=== PATIENT | female | born 1950 | race Caucasian/White ===

== ENCOUNTER 2018-04-23 14:08 | Outpatient (CLI) | payer MEDICARE, BC, OTHER | END 2018-04-23 14:09 | disposition home or self-care (01) | LOC: BICMAMMO 14:08 | PROVIDERS: ATTEND Internal Medicine | DX: Z12.31 Encounter for screening mammogram for malignant neoplasm of breast (principal); R92.1 Mammographic calcification found on diagnostic imaging of breast | CPT/HCPCS: 77063; 77067 ==

== ENCOUNTER 2019-02-03 19:49 | Inpatient (IN) | payer MEDICARE, BC, OTHER ==
[2019-02-03 20:37] LABS: #Basophils 0.1 thou/uL (0.0-0.2); #Eosinphils 0.1 thou/uL (0.0-0.7); #Lymphocytes 1.6 thou/uL (1.20-3.40); #Monocytes 0.8 thou/uL (0.11-0.59); #Neutrophils 7.6 thou/uL (1.40-6.50); %Basophils 0.6 % (0.0-1.0); %Eosinophils 1.3 % (0.0-10.0); %Lymphocytes 15.4 % (21.0-51.0); %Monocytes 7.4 % (0.0-10.0); %Neutrophils 75.4 % (42.0-75.0); Hemoglobin 14.4 g/dL (12.0-16.0); Mean Corpuscular HGB CONC 32.4 g/dL (32.0-36.0); Mean Corpuscular Hemoglobin 30.8 pg (27.0-31.0); Mean Corpuscular Volume 94.9 fL (78.0-98.0); Mean Platelet Volume 8.1 fL (7.4-10.4); Platelet Count 267 thou/uL (130-400); RBC Distribution Width 12.6 % (11.5-14.5); Red Blood Cell (RBC) Count 4.68 mill/uL (4.20-5.40); White Blood Cell (WBC) Count 10.1 thou/uL (4.8-10.8)
[2019-02-03 21:01] LABS: ALT (SGPT) 34 U/L (8-55); AST (SGOT) 29 U/L (5-34); Albumin 4.6 g/dL (3.4-4.8); Alkaline Phosphatase 92 U/L (40-150); Anion Gap 13 mmol/L (10-20); BUN (Urea Nitrogen) 24 mg/dL (9.8-20.1); Bilirubin, Total 0.3 mg/dL (0.2-1.2); Calc. Creatinine Clearance 0 mL/min (70-130); Calcium 10.3 mg/dL (7.8-10.44); Carbon Dioxide 30 mmol/L (23-31); Chloride 96 mmol/L (98-107); Estimated GFR-MDRD 69; Globulin 2.9 g/dL (2.4-3.5); Glucose 123 mg/dL (80-115); Lipase 913 U/L (8-78); Potassium 5.1 mmol/L (3.5-5.1); Protein, Total 7.5 g/dL (6.0-8.3); Sodium 134 mmol/L (136-145)
[2019-02-03 21:07] LABS: Bilirubin Negative (Negative); Blood, Urine Negative (Negative); Clarity Clear (Clear); Glucose, Urine (Dipstick) Normal (Negative); Leukocyte 250 Leu/uL (Negative); Nitrite Negative (Negative); Protein, Urine (Dipstick) Negative (Neg-Trace); RBC/HPF 0-3 HPF (0-3); Squamous Epithelial 0-3 HPF (0-3); Urobilinogen Normal mg/dL (Less than 2)
[2019-02-03] MEDS ORDERED: Ondansetron PF 4 MG/2 ML Vial ONE ×2 (21:07→22:40)
--- NOTE | 2019-02-03 21:35 | CT ---
CT Abdomen Pelvis W Con: 02/03/2019 12:00 AM CLINICAL INFORMATION: Left-sided abdominal pain COMPARISON: 12/21/2016 TECHNIQUE: Multiple contiguous axial images were obtained and a CT of the abdomen and pelvis with IV contrast. C oronal reformats were performed. FINDINGS: Lower Chest: within normal limits. Bilateral breast implants. Abdomen: Liver: within normal limits. Bile Ducts: Normal caliber. Gallbladder: Absent Pancreas: within normal limits. Spleen: within normal limits. Adrenals: within normal limits. Kidneys: within normal limits. Pelvis: Reproductive Organs: Status post hysterectomy. Ureters: within normal limits. Bladder: within normal limits. Peritoneum: No ascites or free air, no fluid collection. Bowel: Postsurgical changes in the upper abdomen and stomach. Stool is seen throughout the colon. The re are dilated proximal small bowel loops. A small bowel feces sign is seen in the more distal dilated small bowel loops. The most distal small bowel loops are decompressed. There appears to be a transition point just to the right of the midline in the periumbilical region. Mesentery and Retroperitoneum: No enlarged mesenteric or retroperitoneal lymph nodes. Vessels: Normal. Abdominal Wall: within normal limits. Bones: Postsurgical changes in the spine and left sacroiliac joint. IMPRESSION: Findings are consistent with small bowel obstruction.
[2019-02-03] MEDS ORDERED: Morphine 4 MG/ML VIAL ONE (22:15)
[2019-02-04] MEDS ORDERED: Morphine 4 MG/ML VIAL SLOW IVP PRN (00:05)
[2019-02-04] MEDS ORDERED: Ondansetron PF 4 MG/2 ML Vial IVP PRN (00:06)
[2019-02-04] MEDS ORDERED: Ondansetron ODT 4 MG TAB SL PRN (00:06)
[2019-02-04] MEDS ORDERED: Morphine 2 MG/ML SYRINGE SLOW IVP PRN (00:25)
[2019-02-04 00:26] VITALS: BMI 25.4
[2019-02-04] MEDS ORDERED: Acetaminophen 325 MG TAB PO PRN (00:27)
[2019-02-04] MEDS ORDERED: Acetaminophen 650 MG Suppository PR PRN (00:27)
[2019-02-04] MEDS: Sodium Chloride 0.9% 1,000 ML IV SCH ×7 (00:34→22:16)
[2019-02-04 06:39] LABS: #Lymphocytes 0.5 thou/uL (1.20-3.40); #Monocytes 0.4 thou/uL (0.11-0.59); #Neutrophils 9.1 thou/uL (1.40-6.50); %Basophils 0.1 % (0.0-1.0); %Eosinophils 0.1 % (0.0-10.0); %Lymphocytes 5.2 % (21.0-51.0); %Monocytes 4.3 % (0.0-10.0); %Neutrophils 90.3 % (42.0-75.0); Hemoglobin 13.8 g/dL (12.0-16.0); Mean Corpuscular HGB CONC 31.4 g/dL (32.0-36.0); Mean Corpuscular Hemoglobin 29.9 pg (27.0-31.0); Mean Corpuscular Volume 95.1 fL (78.0-98.0); Mean Platelet Volume 8.9 fL (7.4-10.4); Platelet Count 241 thou/uL (130-400); RBC Distribution Width 12.6 % (11.5-14.5); Red Blood Cell (RBC) Count 4.62 mill/uL (4.20-5.40)
[2019-02-04 06:57] LABS: Anion Gap 14 mmol/L (10-20); BUN (Urea Nitrogen) 21 mg/dL (9.8-20.1); Calc. Creatinine Clearance 79 mL/min (70-130); Calcium 9.4 mg/dL (7.8-10.44); Carbon Dioxide 28 mmol/L (23-31); Chloride 100 mmol/L (98-107); Estimated GFR-MDRD 86; Glucose 159 mg/dL (80-115); Potassium 4.9 mmol/L (3.5-5.1); Sodium 137 mmol/L (136-145)
[2019-02-04] MEDS: Enoxaparin Sodium 40 MG/0.4 ML SYRINGE SC SCH (08:00)
--- NOTE | 2019-02-04 10:02 | PRG ---
DATE OF SERVICE: 02/04/2019 SUBJECTIVE: The patient was seen and examined at the bedside. She does not have abdominal pain anymore. She did not vomit this morning. She is improved clinically. OBJECTIVE: VITAL SIGNS: Blood pressure is 123/75, pulse is 76, temperature is 98.1, respirations 16, and O2 saturation is 94% on room air. HEENT: Head is atraumatic and normocephalic. Eyes are PERRLA. Sclerae are nonicteric. Oral mucosa is slightly dry. NECK: Supple. LUNGS: Clear. HEART: S1 and S2 normal. ABDOMEN: Soft, nontender, and nondistended. Bowel sounds are present. No organomegaly. EXTREMITIES: No clubbing, cyanosis, or edema. NEUROLOGIC: She is alert and oriented x4. There is no any motor or sensory deficits present. Cranial nerves are intact. She is alert and oriented x4. LABORATORY DATA: Labs showed normal CBC. Normal electrolytes. BUN of 21, creatinine 0.68, and glucose 159. Lipase was elevated at 913 yesterday. IMPRESSION: 1. Small bowel obstruction, recurrent. The patient had multiple episodes of that in the past. 2. Elevated lipase, which suggest of mild pancreatitis. 3. Hypothyroidism. 4. Overactive bladder. 5. Macular degeneration. PLAN: Continue IV fluids. General surgeon is consulted for further management of her small bowel obstruction. We will obtain lipase level today. We will keep her n.p.o. except for few medications. She needs to continue and she should be going home in the next probably 48 hours since this happened several times and spontaneously small bowel obstruction was resolved, most likely this time, it is going to happen too. Job ID: [id number]
--- NOTE | 2019-02-04 12:11 | RAD ---
XR Abdomen 1 View/KUB History: Follow-up small bowel obstruction. Comparison: CT prior day Findings: Evaluation for free air and air-fluid levels is limited without a prior examination. Surgic al clips left upper quadrant of the abdomen as well as suture. Left SI joint fusion hardware. Posterior spinal fusion hardware lumbar spine. Impression: 1. Limited evaluation for obstruction as air fluid levels are only well seen on the upright radiograp h. 2. Moderate stool burden in the colon.
--- NOTE | 2019-02-04 12:53 | CON ---
DATE OF CONSULTATION: CONSULTING PHYSICIAN: Leo Aponte MD REASON FOR CONSULTATION: Small bowel obstruction and pancreatitis. HISTORY OF PRESENT ILLNESS: The patient is a 68-year-old white female. She has a history of an open gastric bypass in 1978 with a revision in 1982. She apparently achieves substantial weight loss and sometime thereafter had abdominoplasty. She has had adhesions related to this. She had a laparotomy for this in 2007, when she developed a small bowel obstruction. This is apparently performed by Dr. Dumont. She apparently has had some degree of bowel obstruction requiring hospitalization in 2016 and 2017. Both of these resolved with nonoperative treatment. There has been concern at various times for her having some degree of pancreatitis as well. She has had elevated lipase both in 2016 and 2017, and again with this admission. She has been evaluated by Dr. Koehler, but of course, following a gastric bypass, ERCP has not been possible. She notes that two days ago, she developed lower abdominal pain. This seemed to improve and she was able to go to voodoo yesterday and at that time, she had a recurrent pain and had bilious emesis and she presented to the hospital. She notes that she had several subsequent episodes of emesis. CT scan was obtained in the emergency room, was consistent with small bowel obstruction. She had changes that revealed a fecalization of the small bowel. This gave a necrotic appearance to her small bowel obstruction. Reasons that are uncertain, she was admitted to the hospital without a nasogastric tube. She tells me that overnight her symptoms improved/resolved. She now denies any pain. She has not vomited since last night. She passed gas once today. She believes her symptoms have entirely resolved. It is noted that her lipase level dropped from 913 last night down to 352 today. PAST MEDICAL HISTORY: Anxiety/depression, "pancreatic spasms", hypothyroidism, and overactive bladder. CURRENT MEDICATIONS: 1. Diazepam. 2. Dicyclomine. 3. Levothyroxine. 4. Bupropion. 5. Citalopram. 6. Oxybutynin. ALLERGIES: TO CODEINE. PAST SURGICAL HISTORY: 1. Appendectomy. 2. Cholecystectomy. 3. Foot surgery. 4. Abdominal hysterectomy. 5. Open gastric bypass in 1978. 6. Revisional gastric pouch surgery in 1982. 7. Exploratory laparotomy for adhesions in 2007. 8. Lumbar surgery per Dr. Rodriguez in 2018. 9. Abdominoplasty and breast augmentation in the mid 1980s. PERSONAL AND SOCIAL HISTORY: She does not smoke nor she drink alcohol. She is to her second . She has a son from a prior marriage. REVIEW OF SYSTEMS: Otherwise unremarkable. FAMILY HISTORY: Noncontributory. PHYSICAL EXAMINATION: VITAL SIGNS: Her temperature is 98.1, pulse 76, and blood pressure 123/75. GENERAL: She is a well-developed, well-nourished, pleasant white female, resting in bed, in no acute distress. She is alert and oriented x3. is present at bedside. HEAD, EYES, EARS, NOSE, AND THROAT: Unremarkable. NECK: Supple without mass or tenderness. LUNGS: Clear to auscultation throughout. CARDIAC: Regular rate and rhythm without murmur. ABDOMEN: She has normoactive bowel sounds. Well-healed incisions. No distention. There is no focus of tenderness or palpable mass. EXTREMITIES: Unremarkable. ASSESSMENT AND PLAN: The patient, whose CT scan was reviewed by myself, who had findings quite definitely associated with small bowel obstruction with fecalization of the small bowel to indicate the chronicity of the problem. Nonetheless, she seems to have had complete symptomatic resolution of her problem without a nasogastric tube. For now, a nasogastric tube does not appear to be necessary. I will obtain a KUB to see what her abdomen looks like currently. If it seems to have normalized or improved, then I would recommend obtaining a Gastrografin small bowel followthrough now to see if her obstruction has resolved. If it does not appear to have normalized on the KUB, then I will hold off on the small bowel followthrough until tomorrow. Job ID: [id number]
--- NOTE | 2019-02-04 14:03 | RAD ---
XR Small Bowel STANDARD History: Small bowel obstruction Comparison: CT prior day Findings: Patient was given Gastrografin contrast. There is contrast into the large bowel by 45 minut es with progressive contrast distention of the transverse colon by one hour. Impression: No evidence for small bowel obstruction.
[2019-02-04] MEDS: Bupropion 100 MG SR TAB PO SCH (20:52)
[2019-02-04] MEDS ORDERED: BUPROPION HCL PO SCH (21:00)
[2019-02-05] MEDS: Sodium Chloride 0.9% 1,000 ML IV SCH ×2 (04:34→09:43)
[2019-02-05] MEDS ORDERED: Levothyroxine Sodium 112 MCG TAB PO SCH (06:00)
--- NOTE | 2019-02-05 07:44 | PRG ---
DATE OF SERVICE: 02/05/2019 SUBJECTIVE: Ms. Jensen is resting comfortably in her bed on the medical floor. Yesterday, we obtained a Gastrografin small-bowel follow-through. This showed no evidence of bowel obstruction. She notes that following this study that she had numerous bowel movements through the evening. She has had no episodes of emesis. She was started on clear liquid diet, which she tolerated uneventfully. She denies any abdominal pain. OBJECTIVE: VITAL SIGNS: On examination, she is afebrile. Pulse is 87, blood pressure 134/81. LUNGS: Clear to auscultation. ABDOMEN: Soft, nontender, and nondistended with normoactive bowel sounds. LABORATORY DATA: There are no labs that have been ordered for today. ASSESSMENT: The patient who had presented to the hospital with CT scan consistent with small bowel obstruction. This resolved spontaneously and she is tolerating her diet currently. In regard to her pancreatitis, her lipase level dropped from 900 at the time of admission to 350 by yesterday and she has no symptoms in regard to her currently. I do not believe it needs to be retested. In summary, she is stable for discharge. I recommend continue her liquid diet for 48 hours, which should be through today and tomorrow, and then advancing her diet as tolerated. She can follow up with surgery p.r.n. and she requires no further studies or labs. Job ID: [id number]
[2019-02-05 07:53] VITALS: BP 121/70; TEMP 98.6
--- NOTE | 2019-02-05 07:59 | HP ---
PRIMARY CARE DOCTOR: Dr. Jose Seo. CODE STATUS: Full code. TIME OF EVALUATION: 11:50 p.m. CHIEF COMPLAINT: Abdominal pain. HISTORY OF PRESENT ILLNESS: This is a 68-year-old female patient with past medical history of hypothyroidism, previous small-bowel obstruction, osteoporosis, pancreatic spasm, and chronic sinusitis, came to the hospital after having abdominal pain that was severe, started insidiously and has been getting worse gradually, became severe. No clear triggers, no alleviating factors. Of note, the patient has had a surgery with Dr. Dumont in 2007 for bowel obstruction. REVIEW OF SYSTEMS: CONSTITUTIONAL: No fever, chills, or generalized weakness. RESPIRATORY: No cough, sputum production, or shortness of breath. CARDIOVASCULAR: No chest pain or palpitation. GASTROINTESTINAL: The patient has nausea, vomiting. No diarrhea. The patient has abdominal pain. BATTERY MECHANIC: No dizziness, headache, or feeling lightheaded. GENITOURINARY: No burning on urination. EXTREMITIES: No leg swelling. All other systems were reviewed and negative except for the findings mentioned above. PAST MEDICAL HISTORY: As mentioned in the HPI. PAST SURGICAL HISTORY: The patient has had breast augmentation, tummy tuck, cholecystectomy, gastric bypass, hysterectomy, orthopedic surgery of the left foot, surgical history of a surgery. PSYCHIATRIC HISTORY: Anxiety and depression. SOCIAL HISTORY: No alcohol. No drugs. No smoking history. KNOWN ALLERGIES: Alprazolam, codeine sulfate, Toradol, tramadol. REPORTED MEDICATIONS: 1. Diazepam. 2. Dicyclomine. 3. Azelastine. 4. Fluticasone. 5. Latanoprost. 6. PreserVision. 7. Levothyroxine. 8. Bupropion. 9. Cyanocobalamin. 10. Oxybutynin chloride. 11. Citalopram. 12. Aspirin. 13. Calcium. 14. Vitamin C. 15. Biotin. 16. Vitamin D. 17. Multivitamin. PHYSICAL EXAMINATION: VITAL SIGNS: On presentation, blood pressure 155/82 with heart rate 80, respiratory rate was 16, temperature 98.4, pain was 0/10, oxygen saturation was 97% on room air. GENERAL APPEARANCE: The patient is alert, oriented, not in acute distress. HEENT: Eyes, normal conjunctivae. Moist oral mucosa. Anicteric. No JVD. RESPIRATORY: Bilateral air entry. No rales or wheezes. Symmetric expansion. CARDIOVASCULAR: Normal rate. Regular rhythm. No murmurs. No gallop. No edema. ABDOMEN: Soft. Normal bowel sounds. The patient has abdominal tenderness. MUSCULOSKELETAL: Baseline range of motion and strength. SKIN: Warm, intact. No pallor. No rash. No redness. Capillary refill seems to be intact. NEUROLOGICAL: No evidence of any new focal weakness. Cranial nerves seem to be intact. PSYCH: The patient is in good mood. No anxiety. Optimal judgment. Patient has small-bowel obstruction. LABORATORY DATA: Reviewed. The patient has white count of 10.1, hemoglobin 14.4, MCV 94.9, platelet count 267. Chemistry; sodium 134, potassium 5.1, chloride 96, carbon dioxide 30, anion gap 13, BUN 24, creatinine 0.82, GFR 69, glucose 123, calcium 10.3, total bilirubin 0.3. LFTs were negative. Lipase 113. Urine was done, the patient has a white count of 4 to 6 with urine leukocyte esterase 250. ASSESSMENT AND PLAN: The patient will be placed in the hospital with following medical problems: 1. Acute pancreatitis with elevation in lipase associated with small bowel obstruction seen on CT. We will treat symptomatically with the IV fluids, pain medications. Surgery is being consulted as per ER report. We will follow recommendations. 2. Hyponatremia, this is mild. Sodium 134. No need for any acute intervention. Monitor sodium level. 3. Hypothyroidism. Continue levothyroxine. 4. Deep venous thrombosis prophylaxis. Job ID: [id number]
[2019-02-05] MEDS: Bupropion 100 MG SR TAB PO SCH (08:32)
[2019-02-05] MEDS: Enoxaparin Sodium 40 MG/0.4 ML SYRINGE SC SCH (08:33)
[2019-02-05] MEDS ORDERED: Levothyroxine Sodium 125 MCG TAB PO SCH (09:00)
--- NOTE | 2019-02-05 10:57 | DIS ---
DATE OF ADMISSION: 02/03/2019 DATE OF DISCHARGE: 02/05/2019 FINAL DIAGNOSES: 1. Small bowel obstruction, resolved. 2. Mild acute pancreatitis, resolved. 3. Hypothyroidism. 4. Overactive bladder. 5. Macular degeneration. CONSULTANTS: Dr. Marcello Newman, General Surgery. HOSPITAL COURSE: The patient is a 68-year-old female, who was admitted to the hospital with abdominal pain. She was evaluated in the emergency room, and the CT of the abdomen showed small bowel obstruction. She had several episodes of similar presentation in the past. At the time of emergency room visit this time, her white count was 10.1, hemoglobin 14.4, platelet count 267. Sodium 134, potassium 5.1, chloride 96, CO2 of 30, BUN 24, creatinine 0.82. Her lipase was elevated at 113. Urinalysis showed 250 of leukocyte esterase, 4 to 6 wbc's, and 21 to 50 hyaline casts. She got admitted to the hospital for further management. She was seen by Dr. Newman for General Surgery consultation. She underwent a bowel x-ray with the barium, which did not show any small bowel obstruction, so most likely, this was resolved. She was placed on clear liquids, and she does not have any nausea or vomiting. She had several bowel movements overnight. Also, her abdominal x-ray, but the quality was limited. She is doing well. Her blood pressure is 121/70, pulse is 75, temperature is 98.6, and respiratory rate is 16. O2 saturation is 95% on room air. She is seen and examined before she is discharged. DISPOSITION: Home. CONDITION UPON DISCHARGE: She is discharged in good condition. DIET: She is supposed to be on a liquid diet for 48 hours, then advance as tolerated. ACTIVITY: As tolerated. DISCHARGE MEDICATIONS: Her medications at the time of discharge are the same what she was taking at home prior to this hospitalization, which are: 1. Dicyclomine 1 tablet 4 times a day. 2. Oxybutynin 5 mg daily. 3. Celexa 10 mg daily. 4. Vitamin D3 of 1000 units once a day. 5. Wellbutrin SR 1 tablet twice a day. 6. Multivitamin once a day. 7. Biotin twice a day. 8. Ascorbic acid 1 tablet twice a day. 9. Calcium carbonate 600 mg twice a day. 10. Aspirin 81 mg once a day. 11. Diazepam 1 tablet once a day, unknown dose. 12. Nasal spray azelastine 2 puffs each nostril at bedtime. 13. Vitamin B12 of 1000 mcg. 14. Levothyroxine 112 mcg daily. 15. Xalatan ophthalmic solutions. FOLLOWUP: She will follow up with her primary care physician as needed. TIME SPENT: Time spent on the discharge is less than 30 minutes. Job ID: [id number]
== END 2019-02-05 10:30 | disposition home or self-care (01) | DRG 388 ==
LOC: ERS 19:49 → T4-A 23:00
PROVIDERS: ADMIT Hospitalist; ATTEND Hospitalist
DX: K56.699 Other intestinal obstruction unspecified as to partial versus complete obstruction (principal); K85.90 Acute pancreatitis without necrosis or infection, unspecified; E87.1 Hypo-osmolality and hyponatremia; E03.9 Hypothyroidism, unspecified; M81.0 Age-related osteoporosis without current pathological fracture; N32.81 Overactive bladder; H35.30 Unspecified macular degeneration; Z90.49 Acquired absence of other specified parts of digestive tract; Z90.710 Acquired absence of both cervix and uterus; Z88.8 Allergy status to other drugs, medicaments and biological substances; Z88.5 Allergy status to narcotic agent; Z79.899 Other long term (current) drug therapy; Z79.82 Long term (current) use of aspirin
CPT/HCPCS: 36415; 74018; 74177; 74250; 80048; 80053; 81003; 81015; 83690; 85025; 96374; 96375; 96376; J1650; J2270; J2405

== ENCOUNTER 2019-03-10 23:47 | Inpatient (IN) | payer MEDICARE, BC, OTHER ==
[~2019-03-10 23:47] MED LIST: ISOVUE-370 76%-LOCM 1 ML ONE
[2019-03-11] MEDS ORDERED: Ondansetron PF 4 MG/2 ML Vial ONE ×3 (00:21→05:15)
[2019-03-11 00:26] LABS: #Basophils 0.1 thou/uL (0.0-0.2); #Eosinphils 0.1 thou/uL (0.0-0.7); #Lymphocytes 1.3 thou/uL (1.20-3.40); #Monocytes 0.9 thou/uL (0.11-0.59); #Neutrophils 11.9 thou/uL (1.40-6.50); %Basophils 0.4 % (0.0-1.0); %Eosinophils 0.9 % (0.0-10.0); %Lymphocytes 9.1 % (21.0-51.0); %Monocytes 6.2 % (0.0-10.0); %Neutrophils 83.5 % (42.0-75.0); Hemoglobin 14.1 g/dL (12.0-16.0); Mean Corpuscular HGB CONC 32.1 g/dL (32.0-36.0); Mean Corpuscular Volume 93.3 fL (78.0-98.0); Platelet Count 285 thou/uL (130-400); RBC Distribution Width 12.7 % (11.5-14.5); White Blood Cell (WBC) Count 14.3 thou/uL (4.8-10.8)
[2019-03-11 00:38] LABS: ALT (SGPT) 23 U/L (8-55); AST (SGOT) 32 U/L (5-34); Albumin 4.6 g/dL (3.4-4.8); Alkaline Phosphatase 102 U/L (40-150); Anion Gap 14 mmol/L (10-20); BUN (Urea Nitrogen) 23 mg/dL (9.8-20.1); Bilirubin, Total 0.3 mg/dL (0.2-1.2); Calc. Creatinine Clearance 0 mL/min (70-130); Calcium 10.4 mg/dL (7.8-10.44); Carbon Dioxide 28 mmol/L (23-31); Chloride 99 mmol/L (98-107); Estimated GFR-MDRD 72; Globulin 2.6 g/dL (2.4-3.5); Glucose 171 mg/dL (80-115); Potassium 4.5 mmol/L (3.5-5.1); Protein, Total 7.2 g/dL (6.0-8.3); Sodium 136 mmol/L (136-145)
[2019-03-11] MEDS ORDERED: Morphine 4 MG/ML VIAL ONE ×3 (00:42→05:22)
[2019-03-11 00:52] LABS: Lipase 4513 U/L (8-78)
--- NOTE | 2019-03-11 07:36 | CT ---
PRELIMINARY REPORT/[facility]/EMERGENCY AFTER HOURS PROCEDURE: EXAM: CT Abdomen and Pelvis With Contrast EXAM DATE/TIME: 03/11/2019 12:59 AM CLINICAL HISTORY: 68 years old, female; Abdominal pain; Acute; Patient HX: 68 y/o F, with h/o bowel obstruction, presents to ED C/O abd pain with vomiting. Pain began earlier today, with onset of vomiting at approx. 2300. She reports having x 5 bms today. PT was prompted to come to ED as she had been previously instructed by her surgeon to do for R/O sbo. TECHNIQUE: Imaging protocol: Axial computed tomography images of the abdomen and pelvis with intravenous contrast. COMPARISON: No relevant prior studies available. FINDINGS: Heart: Mild cardiomegaly. Liver: No acute findings. Peripheral right hepatic small relative low attenuation focus. Gallbladder and bile ducts: Status post cholecystectomy with central biliary dilation. Pancreas: No acute findings. No mass. No ductal dilation. Spleen: No acute findings. No mass. Adrenals: No acute findings. No mass. Kidneys and ureters: No acute findings. No mass. No hydronephrosis. Stomach and bowel: Postsurgical changes of the bowel. Markedly dilated small bowel loops with air fluid levels and fecal material likely related to obstruction. Edema/mild fluid within the right uppe r quadrant. Fecal colonic loading as well. Appendix: No evidence of appendicitis. Intraperitoneal space: No free air. Vasculature: No acute findings. No abdominal aortic aneurysm. Lymph nodes: No significant lymphadenopathy. Bladder: No acute findings. Reproductive: No acute findings. Bones/joints: No acute fracture. Postsurgical changes of the pelvis and spine. Soft tissues: No acute findings. Bilateral breast implants. IMPRESSION: Small bowel obstruction. Thank you for allowing us to participate in the care of your patient. Dictated and Authenticated by: Chriss Corrigan MD 03/11/2019 2:13 AM Central Time ([place] & [place]) FINAL REPORT CT Abdomen Pelvis W Con History: Abdominal pain. Small bowel obstruction. Comparison: CT abdomen and pelvis February 03, 2019 Findings: Findings and impression are concordant with the preliminary report. Impression: Small bowel obstruction as described. Findings are relatively similar to the February 03, 2019 CT examination. Transcribed Date/Time: 03/11/2019 7:57 AM
[2019-03-11] MEDS ORDERED: Morphine 4 MG/ML VIAL IV PRN (09:15)
[2019-03-11] MEDS ORDERED: Ondansetron ODT 4 MG TAB PO PRN (09:16)
[2019-03-11] MEDS: Ondansetron PF 4 MG/2 ML Vial IVP PRN ×2 (09:28→15:57)
[2019-03-11] MEDS ORDERED: hydrALAZINE 20 MG/ML VIAL SLOW IVP PRN (09:31)
[2019-03-11] MEDS ORDERED: Morphine 4 MG/ML VIAL SLOW IVP PRN (09:31)
[2019-03-11] MEDS ORDERED: Lorazepam 2 MG/ML VIAL SLOW IVP PRN (09:31)
[2019-03-11] MEDS ORDERED: Acetaminophen 1,000 MG in Premix Bag 1 BAG IVPB PRN (09:35)
[2019-03-11] MEDS ORDERED: Ketorolac Tromethamine 30 MG/ML VIAL IVP PRN (09:35)
[2019-03-11] MEDS ORDERED: Acetaminophen 1,000 MG in Premix Bag 1 BAG IVPB SCH (09:45)
--- NOTE | 2019-03-11 10:01 | RAD ---
XR Abdomen 1 View/KUB History: NG tube placement Comparison: Radiograph February 04, 2019 Findings: Enteric tube tip is at the gastric body with side port above the GE junction. Dilated loops of bowel in the abdomen. Impression: Enteric tube side port above the GE junction. Recommend advancing 5-6 cm.
[2019-03-11] MEDS ORDERED: Morphine 2 MG/ML SYRINGE SLOW IVP PRN (10:02)
[2019-03-11 10:13] VITALS: BMI 26.6
--- NOTE | 2019-03-11 10:26 | HP ---
HISTORY OF PRESENT ILLNESS: Demetrice Jensen, 68-year-old female, well known to me, presents with abdominal pain, nausea, vomiting, and retching since yesterday evening. Prior to that, she had 5 bowel movements yesterday. She has passed flatus since admission. She presented in the emergency room, had a CAT scan performed revealing constipation and changes of a bowel obstruction. There was significant constipation. The patient has been admitted for similar episodes in the past. On 02/05/2019, she was admitted for similar episode and prior to that had not been admitted since 12/24/2016, and prior to that 12/06/2016, and prior to that September 2015. The patient has had small bowel follow through performed, 02/04/2019 and 12/23/2016, and had transit within 30 minutes. The patient did require operative intervention in the past with exploratory laparotomy adhesiolysis performed by me in 2007. She has extensive history including gastric bypass and revision, see below. PAST SURGICAL HISTORY: Appendectomy; open cholecystectomy; abdominal hysterectomy without oophorectomy in 1977; open gastric bypass, losing more than 50 pounds, suffering weight regain, and in 1983 she underwent revision of her pouch, and 2007 a laparotomy adhesiolysis performed by sd. ALLERGIES: NONE. SOCIAL HISTORY: Tobacco, none. Alcohol none. 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 She lives in [place]. She has had lumbar surgery by Dr. Love in the past. She was told she would need another surgery, but did not follow through with that. She saw Dr. Koehler in the past and had a colonoscopy 4 to 5 years ago. PAST MEDICAL HISTORY: Hypothyroidism, osteoporosis, history of morbid obesity with gastric bypass. HOME MEDICATIONS: 1. Wellbutrin. 2. Ditropan. 3. Theragran. 4. Synthroid. 5. Eye drops. 6. Bentyl. 7. Diazepam. 8. Vitamin B12. 9. Celexa. 10. Calcium carbonate. 11. Christopher Biotin. 12. Nasal spray azelastine. 13. Aspirin. 14. Vitamin C. PHYSICAL EXAMINATION: VITAL SIGNS: Weight 65 kg, respiratory rate 18, temperature 97.3 degrees, heart rate 87. HEAD, EARS, EYES, NOSE AND THROAT: Unremarkable. LUNGS: Clear to auscultation. CARDIAC: Regular rate and rhythm without murmur or gallop. ABDOMEN: Soft, mild tympany, distention, tenderness in lower abdomen. Upper abdomen soft. Scars per open surgeries as described above. EXTREMITIES: Unremarkable. No ankle edema. Palpable pulses. LABORATORY DATA: Sodium 136, potassium 4.5, BUN 23, creatinine 0.79. Liver function tests are normal. Hemoglobin 14 and white count 14. ASSESSMENT/PLAN: 1. Significant constipation. 2. Changes of small bowel distention with air-fluid levels. We will place an NG tube. Abdominal x-ray for confirmation and possible small bowel follow through later today or in the morning pending clinical course and NG tube output. Hopefully, we can avoid an operation small bowel follow through. The last two performed recently had rapid transit through the small bowel. Job ID: [id number]
[2019-03-11] MEDS: Lactated Ringer's 1,000 ML IV SCH ×3 (10:38→20:00)
[2019-03-11] MEDS ORDERED: MD-Gastroview 120 ML BOT ONE (15:39)
--- NOTE | 2019-03-11 16:57 | RAD ---
EXAM: XR Small Bowel STANDARD PROVIDED CLINICAL HISTORY: Small bowel obstruction. COMPARISON: 02/04/2019 FINDINGS: Again noted are postsurgical changes in the upper abdomen with multiple surgical clips and radiopaque suture material seen with surgical clips overlying the right upper quadrant. Nasogastric tube is noted in place which terminates near the region of the expected location of the gastroesophageal junc tion. Postsurgical changes lumbar spine are seen. Bowel gas pattern is overall nonspecific on the social media senior associate image with small amount of retained fecal material in the ascending colon. No consolidation is seen either lung base. There is opacification of small bowel loops with approximate transit time of contrast through the sma ll bowel of 1 hour with contrast seen in the ascending colon to the level of the hepatic flexure. Residual contrast is seen within the urinary bladder related to prior contrast exam. IMPRESSION: 1. Loops of small bowel are similar in caliber to the study on 02/04/2019, and there is progression of contrast into the colon with approximate transit time of 1 hour. 2. Postsurgical changes epigastric region.
[2019-03-11] MEDS ORDERED: Cyclobenzaprine 10 MG TAB PO PRN (19:42)
[2019-03-11] MEDS ORDERED: Magnesium Citrate 300 ML BOT PER TUBE SCH (19:45)
[2019-03-11] MEDS: Dicyclomine 20 MG TAB PO SCH (21:00)
[2019-03-11] MEDS ORDERED: Montelukast Sodium 10 mg Tablet PO SCH (21:00)
[2019-03-11] MEDS ORDERED: Azelastine 137 MCG/Spray 30 ML NS SCH (21:00)
[2019-03-11] MEDS ORDERED: Thiamine HCl 200 MG/2 ML VIAL SLOW IVP SCH (21:00)
[2019-03-11] MEDS ORDERED: Vit A,C & E/Lutein/Minerals Tablet PO SCH (21:00)
[2019-03-11] MEDS: Bupropion 100 MG SR TAB PO SCH (21:00)
[2019-03-11] MEDS: Polyethylene Glycol 3350 17 GM Packet PO SCH (21:00)
[2019-03-11] MEDS ORDERED: (Biotin [Mega Biotin] 10,000 MCG) PO SCH (21:00)
[2019-03-11] MEDS: Citalopram 20 MG TAB PO SCH (21:00)
[2019-03-11] MEDS: Ascorbic Acid 500 mg Chewable Tablet PO SCH (21:00)
[2019-03-11] MEDS: Calcium Carbonate 600 MG TAB PO SCH (21:00)
[2019-03-12 04:39] LABS: #Lymphocytes 0.8 thou/uL (1.20-3.40); #Monocytes 0.9 thou/uL (0.11-0.59); #Neutrophils 8.9 thou/uL (1.40-6.50); %Basophils 0.1 % (0.0-1.0); %Eosinophils 0.4 % (0.0-10.0); %Monocytes 8.8 % (0.0-10.0); %Neutrophils 83.7 % (42.0-75.0); Hemoglobin 12.6 g/dL (12.0-16.0); Mean Corpuscular HGB CONC 31.5 g/dL (32.0-36.0); Mean Corpuscular Hemoglobin 30.4 pg (27.0-31.0); Mean Corpuscular Volume 96.6 fL (78.0-98.0); Platelet Count 266 thou/uL (130-400); RBC Distribution Width 12.7 % (11.5-14.5); Red Blood Cell (RBC) Count 4.15 mill/uL (4.20-5.40); White Blood Cell (WBC) Count 10.6 thou/uL (4.8-10.8)
[2019-03-12 05:04] LABS: ALT (SGPT) 37 U/L (8-55); AST (SGOT) 44 U/L (5-34); Albumin 3.6 g/dL (3.4-4.8); Alkaline Phosphatase 97 U/L (40-150); Anion Gap 10 mmol/L (10-20); BUN (Urea Nitrogen) 16 mg/dL (9.8-20.1); Bilirubin, Total 0.4 mg/dL (0.2-1.2); Calc. Creatinine Clearance 76 mL/min (70-130); Calcium 8.4 mg/dL (7.8-10.44); Carbon Dioxide 36 mmol/L (23-31); Chloride 101 mmol/L (98-107); Estimated GFR-MDRD 78; Globulin 2.2 g/dL (2.4-3.5); Glucose 118 mg/dL (80-115); Lipase 250 U/L (8-78); Potassium 4.1 mmol/L (3.5-5.1); Protein, Total 5.8 g/dL (6.0-8.3); Sodium 143 mmol/L (136-145)
[2019-03-12] MEDS ORDERED: Levothyroxine Sodium 112 MCG TAB PO SCH (06:00)
[2019-03-12 08:19] VITALS: BP 128/65; TEMP 98.4
[2019-03-12] MEDS: Dicyclomine 20 MG TAB PO SCH (08:49)
[2019-03-12] MEDS: Citalopram 20 MG TAB PO SCH (08:50)
[2019-03-12] MEDS: Bupropion 100 MG SR TAB PO SCH (08:50)
[2019-03-12] MEDS: Calcium Carbonate 600 MG TAB PO SCH (08:50)
[2019-03-12] MEDS: Polyethylene Glycol 3350 17 GM Packet PO SCH (08:50)
[2019-03-12] MEDS: Ascorbic Acid 500 mg Chewable Tablet PO SCH (08:50)
[2019-03-12] MEDS ORDERED: Oxybutynin 5 MG TAB PO SCH (09:00)
[2019-03-12] MEDS ORDERED: Diazepam 2 MG TAB PO SCH (09:00)
[2019-03-12] MEDS ORDERED: Latanoprost 0.005% Ophth Soln 2.5 ml Bottle EA EYE SCH (09:00)
[2019-03-12] MEDS ORDERED: Aspirin 81 mg Enteric Coated Tablet PO SCH (09:00)
[2019-03-12] MEDS ORDERED: Enoxaparin Sodium 40 MG/0.4 ML SYRINGE SC SCH (09:00)
--- NOTE | 2019-03-12 09:31 | RAD ---
ABDOMINAL SURVEY WITH UPRIGHT CHEST AND 2 VIEW ABDOMEN: Date: 03/12/19 HISTORY: Small bowel obstruction. Correlation made to yesterday's small bowel exam and to films of 03/11/19. FINDINGS: Contrast is seen throughout the colon. There is some residual small bowe3l contrast. There continue t o be gas-filled dilated loops of small bowel in the left abdomen which do exhibit differential air fl uid levels on the upright view. No evidence of free intraperitoneal air. The lung montilla are clear. IMPRESSION: Continued gas-filled dilated loops of small bowel with differential air fluid levels in the left mid and upper abdomen. There is contrast opacification of the colon. POS: [facility]
--- NOTE | 2019-03-12 10:38 | PRG ---
DATE OF SERVICE: 03/12/2019 SUBJECTIVE: Ms. Jensen is doing well today. Small-bowel follow-through had a rapid transit into the colon. Prior to removing her NG tube, she was given magnesium citrate per NG tube, leaving her NG tube for an hour, then removing it. Between the Gastrografin small-bowel follow-through and the magnesium citrate, she has had 2 large bowel movements. Abdominal x-rays this morning looks much better as far as the constipation. Previously, the patient felt that she was not constipated because she is having regular bowel movements, but on presentation, she did have abundant stool in her colon. She is on thyroid replacement and her TSH this morning is 0.7359. She was advised to take MiraLAX and a fiber [id number] once or twice a day. She had a colonoscopy in the last 3 [address] Koehler. I have advised her that she could see him regarding her constipation, although clinically her bowel movements are regular. She has accumulated stool, and on the last three admissions (including this one), she was found to have abundant constipation and all occasions has had a normal small bowel follow-through. OBJECTIVE: LUNGS: Clear to auscultation. CARDIAC: Regular rate and rhythm without murmur or gallop. ABDOMEN: Soft, nontender. ASSESSMENT AND PLAN: Doing well. Plan to discharge home with above measures. Follow up in my office as needed. Follow up with Dr. Koehler in the next few weeks. Job ID: [id number]
[2019-03-12] MEDS ORDERED: Mometasone Furoate 120 PUFF 220 MCG INH SCH (18:30)
[2019-03-12] MEDS ORDERED: Citrucel 500 MG TAB PO SCH (21:00)
--- NOTE | 2019-03-15 10:31 | DIS ---
DATE OF ADMISSION: 03/11/2019 DATE OF DISCHARGE: 03/12/2019 DISCHARGE DIAGNOSES: 1. Constipation, abdominal pain. 2. CT scan suggests possible small bowel obstruction, but small-bowel follow-through Gastrografin revealed normal transit through the small bowel within 1 hour of contrast administration. HISTORY: A 68-year-old female with open gastric bypass and subsequent revision of the pouch, has had laparotomy by me for small-bowel obstruction in 2007. She has had several admissions over the last 2 years for abdominal pain finding constipation and questionable bowel obstruction and an NG tube placed (to 50 to 55 cm considering her gastric bypass status) and Gastrografin study was normal transit within half an hour to hour in colon. The patient is advised, in addition to her home medications, to also take MiraLAX once or twice a day and a fiber once or twice a day and follow up with Dr. Koehler. The patient is tolerating her diet at this time and is discharged home with followup with me as needed. Job ID: [id number]
[2019-04-04] MEDS ORDERED: Cyanocobalamin 1000 MCG/ML VIAL IM SCH (09:00)
== END 2019-03-12 11:03 | disposition home or self-care (01) | DRG 392 ==
LOC: ERS 23:47 → ONC 03-11 05:18
PROVIDERS: ADMIT Specialist; ATTEND Specialist
PROC: 0DH673Z Insertion of Infusion Device into Stomach, Via Natural or Artificial Opening (ICD-10-PCS; principal; 2019-03-11)
DX: K59.00 Constipation, unspecified (principal); E03.9 Hypothyroidism, unspecified; M81.0 Age-related osteoporosis without current pathological fracture; Z90.49 Acquired absence of other specified parts of digestive tract; Z90.711 Acquired absence of uterus with remaining cervical stump; Z98.84 Bariatric surgery status; Z79.82 Long term (current) use of aspirin; Z79.899 Other long term (current) drug therapy
CPT/HCPCS: 36415; 74018; 74022; 74177; 74250; 80053; 83690; 84443; 85025; 94760; 96361; 96374; 96375; 96376; J0131; J1650; J1885; J2270; J2405; J3411

== ENCOUNTER 2019-04-29 13:29 | Outpatient (CLI) | payer MEDICARE, BC, OTHER ==
--- NOTE | 2019-04-29 14:25 | MMO ---
Bilateral MAMMO Bilat Screen [facility]. CLINICAL HISTORY: Patient is 68 years old and is seen for screening. The patient has no family history of breast cancer. The patient has a history of cervical cancer 1975. The patient has a history of Implants in 1985, Explantation in 2005 and Implants in 2005. VIEWS: The views performed were: bilateral craniocaudal with tomosynthesis and bilateral mediolateral oblique with tomosynthesis. FILMS COMPARED: The present examination has been compared to a prior imaging study performed at [facility] on 04/23/2018. This study has been interpreted with the assistance of computer-aided detection. MAMMOGRAM FINDINGS: The breasts are heterogeneously dense, which could obscure a lesion on mammography. Normal implants are present. There are no suspicious masses, suspicious calcifications, or new areas of architectural distortion. IMPRESSION: THERE IS NO MAMMOGRAPHIC EVIDENCE OF MALIGNANCY. A ROUTINE FOLLOW-UP MAMMOGRAM IN 1 YEAR IS RECOMMENDED. THE RESULTS OF THIS EXAM WERE SENT TO THE PATIENT. ACR BI-RADS Category 2 - Benign finding MAMMOGRAPHY NOTE: 1. A negative mammogram report should not delay a biopsy if a dominant of clinically suspicious mass is present. 2. Approximately 10% to 15% of breast cancers are not detected by mammography. 3. Adenosis and dense breasts may obscure an underlying neoplasm. Reported by: STEPHANIE GUILLEN MD Electonically Signed: [id number]
== END 2019-04-29 13:30 | disposition home or self-care (01) ==
LOC: BICMAMMO 13:29
PROVIDERS: ATTEND Internal Medicine
DX: Z12.31 Encounter for screening mammogram for malignant neoplasm of breast (principal); Z85.41 Personal history of malignant neoplasm of cervix uteri; Z98.82 Breast implant status
CPT/HCPCS: 77063; 77067

== ENCOUNTER 2019-11-03 22:50 | Inpatient (IN) | payer MEDICARE, BC, OTHER ==
[2019-11-03] MEDS ORDERED: Ondansetron PF 4 MG/2 ML Vial ONE (23:10)
[2019-11-03] MEDS ORDERED: Morphine 4 MG/ML VIAL ONE (23:10)
[2019-11-03 23:28] LABS: #Basophils 0.1 thou/uL (0.0-0.2); #Eosinphils 0.2 thou/uL (0.0-0.7); #Lymphocytes 1.9 thou/uL (1.20-3.40); #Monocytes 0.9 thou/uL (0.11-0.59); #Neutrophils 11.3 thou/uL (1.40-6.50); %Basophils 0.5 % (0.0-1.0); %Eosinophils 1.4 % (0.0-10.0); %Lymphocytes 13.3 % (21.0-51.0); %Monocytes 6.5 % (0.0-10.0); %Neutrophils 78.3 % (42.0-75.0); Hemoglobin 14.8 g/dL (12.0-16.0); Mean Corpuscular HGB CONC 32.3 g/dL (32.0-36.0); Mean Corpuscular Hemoglobin 30.9 pg (27.0-31.0); Mean Corpuscular Volume 95.6 fL (78.0-98.0); Mean Platelet Volume 8.4 fL (7.4-10.4); Platelet Count 260 thou/uL (130-400); RBC Distribution Width 11.8 % (11.5-14.5); Red Blood Cell (RBC) Count 4.79 mill/uL (4.20-5.40); White Blood Cell (WBC) Count 14.4 thou/uL (4.8-10.8)
[2019-11-03 23:44] LABS: ALT (SGPT) 30 U/L (8-55); AST (SGOT) 28 U/L (5-34); Albumin 4.4 g/dL (3.4-4.8); Alkaline Phosphatase 95 U/L (40-110); Anion Gap 16 mmol/L (10-20); BUN (Urea Nitrogen) 14 mg/dL (9.8-20.1); Bilirubin, Total 0.4 mg/dL (0.2-1.2); Calc. Creatinine Clearance 0 mL/min (70-130); Calcium 9.8 mg/dL (7.8-10.44); Carbon Dioxide 25 mmol/L (23-31); Chloride 102 mmol/L (98-107); Estimated GFR-MDRD 81; Glucose 141 mg/dL (83-110); Potassium 4.6 mmol/L (3.5-5.1); Protein, Total 7.4 g/dL (6.0-8.3); Sodium 138 mmol/L (136-145)
[2019-11-03] MEDS ORDERED: Fentanyl 100 MCG/2 ML VIAL ONE (23:44)
[2019-11-03 23:57] LABS: Lipase 3730 U/L (8-78)
[2019-11-04] MEDS ORDERED: hydrALAZINE 20 MG/ML VIAL ONE ×2 (01:53→17:44)
[2019-11-04] MEDS ORDERED: Ondansetron ODT 4 MG TAB SL PRN (03:24)
[2019-11-04] MEDS ORDERED: Ondansetron PF 4 MG/2 ML Vial IVP PRN ×3 (03:24→20:55)
[2019-11-04] MEDS ORDERED: Dextrose 5 % And 0.9 % NaCl 1,000 ML IV SCH (03:30)
[2019-11-04 03:42] VITALS: BMI 29.5
[2019-11-04] MEDS: Morphine 2 MG/ML SYRINGE SLOW IVP PRN ×2 (04:02→12:10)
--- NOTE | 2019-11-04 07:53 | CT ---
PRELIMINARY REPORT/[facility]/EMERGENCY AFTER HOURS PROCEDURE Receipt of this report by the clinical staff was confirmed with Becka Luna MD by Daniel Cloud on Nov 04, 2019 00:47:00 CDT. Addendum electronically signed by Tati Cloud on November 04, 2019 12:48:[address] ABDOMEN PELVIS WO CONTRAST History: Pt with epigastric pain and dry heaves that began this afternoon. Pt reports h/o same due to 'pancreatic spasms.' Pt denies fever, change in bowel movements, and urinary symptoms. Comparison: CT\SR - CT ABDOMEN PELVIS W CON - 03/11/2019 12:59 AM CDT Findings: No acute process identified in the lung bases. Bilateral breast implants are partially imaged. Cardiac size is stable. Mild cardiomegaly. No pericardial effusion. Abdominal aorta is normal in caliber with atherosclerotic changes. No evidence of nephrolithiasis, ureterolithiasis or hydronephrosis. Urinary bladder is unremarkable . Numerous surgical clips again seen in the left upper quadrant. Spleen is small in size. Liver and adrenal glands are unremarkable as visualized. Pancreatic atrophy noted. Mild low-density appearance of the pancreatic head with hazy appearance o f the surrounding fat. Correlate with lipase levels. No definite biliary ductal dilatation. Status post cholecystectomy. Post surgical changes of the stomach and small bowel again noted. There is a tiny hiatal hernia. There is fluid distention of the duodenum and distal stomach. There are multiple dilated small epifanio l loops throughout the abdomen, to level of the right lower quadrant anteriorly, with abrupt transition point noted. Findings are compatible with small bowel obstruction. There is also thickening of the small bowel loops at the level of transition point. Pneumatosis cannot be excluded in the distal small bowel proximal to the transition point. No evidence of free intraperitoneal air. No portal venous gas identified. Majority of the colon is collapsed which limits evaluation. Appendix not clearly identified. Osteopenia with degenerative changes. Postsurgical changes in the lumbar spine and left sacroiliac joint again noted. No hardware complication is seen. Epigastric, fat-containing ventral hernia noted in the right upper quadrant (image 28), new from prio r. Status post hysterectomy. Impression: 1. Postsurgical changes of the stomach and small bowel likely relates to gastric bypass. Correlate with patient history. Findings compatible with small bowel obstruction, with transition point in the right lower quadrant, with prominent wall thickening at the level of transition. A component of pneumatosis intestinalis cannot be excluded in the distal small bowel. No evidence of portal venous gas or free intraperitoneal air. There is also fluid distention of the distal stomach and pro ximal duodenum, proximal to the small bowel anastomosis. Component of blind loop or blind pouch syndrome is not excluded. Surgical consultation is recommended. 2. Mild hazy appearance of the fat surrounding the pancreatic head which is somewhat low density and appearance. Correlate with lipase levels to exclude component of pancreatitis. 3. Appendix not identified. No evidence of acute diverticulitis. Majority of the colon is collapse d. 4. Epigastric ventral hernia, right upper quadrant, without evidence of bowel herniation. 5. Additional chronic and postsurgical changes, as above. Followup per final report recommendations. ELECTRONICALLY SIGNED BY: John Burgess DO Nov 04, 2019 12:42:35 AM CDT This report is intended for review by the ordering physician only, in accordance of law. If you recei ve this report in error, please call [facility] at [phone]. FINAL REPORT Emergent after hours noncontrast CT abdomen and pelvis HISTORY: Epigastric abdominal pain and nausea. COMPARISON: 03/11/2019. IMPRESSION: 1. Partial small bowel obstruction with transition point in the right lower quadrant. Feculent type m aterial is seen in the dilated loops of small bowel. Similar findings were seen on the study in 2019. The duodenum measures approximately 5 cm in diameter. 2. Postoperative changes stomach and loops of small bowel in the upper abdomen. 3. Stable small low-density focus peripheral aspect right hepatic lobe. 4. Stranding adjacent to the region of the pancreatic head. This could be attributable to the bowel o bstruction, but pancreatitis is a possibility. Correlation with pancreatic enzymes is recommended. Above findings are in agreement with the preliminary report by [facility]. Transcribed Date/Time: 11/04/2019 8:13 AM
--- NOTE | 2019-11-04 08:03 | RAD ---
EXAM: 1 view abdomen PROVIDED CLINICAL HISTORY: Enteric catheter placement COMPARISON: 03/12/2019 chest radiograph FINDINGS: The distal aspects of a catheter, presumably enteric catheter given the provided clinical history are visualized overlying the left lateral aspect of the mid thoracic spine. The visualized lung bases appear clear. Surgical clips and suture material overlying the left upper quadrant. Surgical clips ov erlie the right upper quadrant. Spinal postoperative changes are again seen. There is no evidence for pneumoperitoneum. The visualized bowel gas pattern is nonspecific. IMPRESSION: Presumed enteric catheter overlies the central chest. Repositioning recommended.
[2019-11-04] MEDS ORDERED: hydrALAZINE 20 MG/ML VIAL SLOW IVP PRN (09:26)
--- NOTE | 2019-11-04 10:24 | HP ---
HISTORY OF PRESENT ILLNESS: Demetrice Jensen is a 69-year-old female, admitted to the emergency room last night. The patient states she had a normal bowel movement yesterday morning and one yesterday evening at 6 p.m. However at about 04:30 p.m., she began experiencing onset of lower abdominal pain. She had dry heaves. She presented to the emergency room. CAT scan revealed changes consistent with the distal bowel obstruction with the small bowel dilatation. There was no evidence of an internal hernia. Not mentioned on her report is that she has significant constipation. She does take stool softeners and fiber and reports normal bowel movements. However, on her CAT scan, she does have significant constipation, although not as severe as last year when she presented with similar problems. There was seen to be a transition point in the lower abdomen for her bowel obstruction. She has not passed flatus since admission. Gastric drainage is 130 mL since NG tube was placed. The patient had an open gastric bypass in 1978, midline incision; open cholecystectomy, right subcostal incision in 1980. She has had a hysterectomy without oophorectomy and an appendectomy in the past. In 2007, I performed laparotomy and adhesiolysis for more than an hour for severe adhesions. She had a transition point at that time. The patient was re-admitted by me in 2015, for similar episode, resolving nonoperatively with a small-bowel follow-through performed, and she was discharged home. She was admitted by the Hospitalist Service on December 06, 2016, and again on December 24, 2016, and again on 02/05/2019, all treated for partial bowel obstructions, abdominal pain, resolving nonoperatively. On one occasion, Dr. Newman saw her in consultation. In March 2019, I admitted her, saw her, and she was hospitalized for similar problems, undergoing a small-bowel follow-through with rapid transit to the colon to avoid an operation. In the interim, she states she has done well without interval problems. She does see Dr. Koehler on a routine basis, last having had a colonoscopy and an upper endoscopy in 2011 or 2012. She last saw Dr. Koehler' PA earlier this year, and there was some discussion about her intermittent dysphagia and consideration for upper endoscopy given, but this was not performed as the patient did not seem to have a persistent problem with this. ALLERGIES: 1. CODEINE. 2. TRAMADOL. 3. ALPRAZOLAM. 4. HYDROCODONE. 5. KETORALAC. 6. SEAFOOD. PAST SURGICAL HISTORY: As noted above, appendectomy as a child, open gastric bypass in 1978, 1980 open cholecystectomy, 1983 revision of her gastric pouch, 2007 laparotomy and adhesiolysis performed by me, and back surgeries by Dr. Rodriguez. She has ongoing cervical spine and lumbar problems, and Dr. Rodriguez suggests she have other operations, but she has avoided this today. She has avoided narcotics as she does not want to develop an addiction. SOCIAL HISTORY: The patient is . Her is in good health. MEDICATIONS: 1. Calcium. 2. Biotin. 3. Ascorbic acid. 4. Vitamin C and E. 5. MiraLAX daily. 6. Cholecalciferol. 7. Vitamin B12. 8. Bentyl. 9. Diazepam. 10. Celexa. 11. Latanoprost eye drops. 12. Ditropan. 13. Levothyroxine. 14. Flexeril. REVIEW OF SYSTEMS: Ten-point noncontributory. FAMILY HISTORY: Noncontributory. PHYSICAL EXAMINATION: VITAL SIGNS: 5 feet 3 inches, 167 pounds, 29 BMI. Temperature 98.3, heart rate 98, respiratory rate 18, blood pressure 173/99. HEAD, EARS, EYES, NOSE, AND THROAT: Unremarkable. LUNGS: Clear to auscultation. CARDIAC: Regular rate and rhythm without murmur or gallop. ABDOMEN: Soft and nondistended. Minimal tympany. Mild tenderness in the lower abdomen without guarding or rebound. EXTREMITIES: Without ankle edema. Palpable pulses. NEUROLOGIC: GCS 15. Neurologically intact without deficit. LYMPHATICS: No neck, axillary, or groin masses or lymphadenopathy. LABORATORY DATA: White count 14, hemoglobin 14. Sodium 138, potassium 4.6, BUN 14, creatinine 0.71, glucose 141. Lipase 3730, this has been intermittently elevated in the past during admissions, but returned to almost normal. A CAT scan demonstrates some haziness around the pancreas as it has in the past, but she denies any upper abdominal pain. ASSESSMENT AND PLAN: 1. Chronic constipation, on MiraLAX and stool softeners and fiber. Two bowel movements yesterday. No flatus since. 2. Suggestive of bowel obstruction on CAT scan. We will continue NG tube to suction (status post gastric bypass, open) and obtain small-bowel follow-through, contrast per NG tube. Await these results today. Hopefully, we can avoid an operation as she has had past operation in 2007, for more than an hour and a half adhesiolysis. She seems to be have been doing well prior to this acute event. She does have significant constipation. 3. Gastric bypass status. 4. Distention of the gastric remnant. Followup abdominal x-rays in the morning after small-bowel follow-through today. Based further recommendations on clinical course. 5. Elevated lipase of concern, but this has occurred in the past, and CAT scan does suggest some peripancreatic changes. She has had a past cholecystectomy. There is no biliary dilatation. Liver function tests are normal. Job ID: [id number]
[2019-11-04] MEDS ORDERED: Ondansetron PF 4 MG/2 ML Vial ONE ×2 (11:11→11:29)
[2019-11-04] MEDS ORDERED: PROPOFOL 200 MG/20 ML VIAL ONE (11:29)
[2019-11-04] MEDS ORDERED: Lidocaine 1% PF 5 ML VIAL ONE (11:29)
[2019-11-04] MEDS ORDERED: Rocuronium Bromide 10 MG/ML (10ML VIAL) ONE (11:29)
[2019-11-04] MEDS ORDERED: Dexamethasone 20 MG/5 ML VIAL ONE (11:29)
[2019-11-04] MEDS ORDERED: PHENYLEPHRINE-NS 100 MCG/ML 10 ML SYRINGE ONE (11:29)
[2019-11-04] MEDS ORDERED: Glycopyrrolate 0.2 MG/ML 5 ML SYRINGE ONE (11:29)
[2019-11-04] MEDS ORDERED: Ondansetron PF 4 MG/2 ML Vial SLOW IVP SCH ×2 (11:45→14:15)
[2019-11-04] MEDS: Lactated Ringer's 1,000 ML IV SCH ×3 (12:13→22:18)
[2019-11-04] MEDS ORDERED: MD-Gastroview 120 ML BOT ONE (13:27)
[2019-11-04] MEDS ORDERED: Morphine 2 MG/ML SYRINGE SLOW IVP PRN (14:02)
[2019-11-04] MEDS ORDERED: Promethazine HCl 25 MG SUPP PR SCH (14:15)
[2019-11-04] MEDS ORDERED: Meropenem 2 GM, Admixture Fee 1 EACH in Sodium Chloride 0.9% 100 ML IVPB SCH (14:45)
--- NOTE | 2019-11-04 15:06 | PRG ---
DATE OF SERVICE: 11/04/2019 SUBJECTIVE: Ms. Jensen's 4-hour small-bowel follow-through fails to show any progress. There is a complete bowel obstruction. The patient has experienced nausea and vomiting throughout the procedure. Her NG tube was returned to suction, evacuating Gastrografin from her upper GI tract. I have discussed this with the patient. PLAN: Plan at this time is to proceed with laparotomy under general anesthesia and TAP block. She understands the risks of infection, bleeding, reoperation, possibility of bowel resection, and consents. Procedure is indicated based on operative findings. Questions were answered. Job ID: [id number]
[2019-11-04] MEDS ORDERED: Fentanyl 100 MCG/2 ML VIAL ONE (16:06)
--- NOTE | 2019-11-04 16:45 | RAD ---
Small bowel follow-through HISTORY: Small bowel obstruction. Abdominal pain. FINDINGS: Gastrografin contrast was administered through the indwelling nasogastric tube. Early image s show dilated loops of small bowel throughout the abdomen. Imaging was carried out to 4 hours, at which time no contrast was seen within the colon or within the nondilated gas-filled small bowel loop s in the left lower quadrant. IMPRESSION : High-grade mid to distal small bowel obstruction. Findings were discussed with Dr. Dumont at 1400 hours. Code CR.
[2019-11-04] MEDS ORDERED: Promethazine HCl 25 MG/ML VIAL IM PRN ×2 (20:41→20:55)
[2019-11-04] MEDS ORDERED: Promethazine HCl 25 MG/ML VIAL SLOW IVP PRN (20:41)
[2019-11-04] MEDS ORDERED: Ondansetron HCl/PF 4 MG/2 ML Vial IVP PRN (20:41)
[2019-11-04] MEDS ORDERED: fentaNYL Citrate/PF 2,000 MCG in Sodium Chloride 0.9% 60 ML IV PRN (20:55)
[2019-11-04] MEDS ORDERED: Zolpidem Tartrate 5 MG TAB PO PRN (20:55)
[2019-11-04] MEDS ORDERED: Naloxone HCl 0.4 mg/ml Vial IV PRN (20:55)
[2019-11-04] MEDS ORDERED: diphenhydrAMINE 50 MG/ML VIAL IVP PRN (20:55)
[2019-11-04] MEDS ORDERED: diphenhydrAMINE 25 MG CAP PO PRN (20:55)
[2019-11-04] MEDS ORDERED: diphenhydrAMINE 50 MG/ML VIAL IM PRN (20:55)
[2019-11-04] MEDS ORDERED: Communication Order-Pharmacy FS SCH (21:00)
--- NOTE | 2019-11-04 21:19 | OP ---
DATE OF PROCEDURE: 11/04/2019 PREOPERATIVE DIAGNOSES: 1. Small-bowel obstruction. 2. History of morbid-obesity. 3. History of open Deepa-en-Y gastric bypass with gastric pouch revision 12 years ago. 4. Prior history of adhesiolysis for complete bowel obstruction. POSTOPERATIVE DIAGNOSES: 1. Small-bowel obstruction. 2. History of morbid-obesity. 3. History of open Deepa-en-Y gastric bypass with gastric pouch revision 12 years ago. 4. Prior history of adhesiolysis for complete bowel obstruction. PROCEDURES PERFORMED: 1. Exploratory laparotomy. 2. Extensive adhesiolysis for 2 hours. 3. Resection of the biliary limb segment with revision of the Deepa-en-Y jejunojejunostomy. ANESTHESIA: General. ESTIMATED BLOOD LOSS: 100 mL. BLOOD TRANSFUSION: None. HISTORY: A 69-year-old female who many years ago had open Deepa-en-Y gastric bypass, 2 years later revision of her gastric pouch and open cholecystectomy subsequently, and in 2007 had laparotomy and adhesiolysis, extensive. Now presents with a complete bowel obstruction by small-bowel follow-through and CAT scan with elevation of her lipase and distention of her gastric remnant duodenum. DESCRIPTION OF PROCEDURE: The patient was taken to the operating room where under general anesthesia, abdomen was prepared with ChloraPrep and draped in routine fashion. Boo catheter placed at the beginning of the procedure. A midline incision was made, centered about the umbilicus, carried down to skin and subcutaneous tissue. Extensive adhesiolysis was taken down, freeing visceral adhesions from the anterior abdominal wall and intraabdominal. There were extensive adhesions in the left upper quadrant and the left lower quadrant. Careful dissection was performed. The enterotomy sustained in the left upper quadrant in the course of mobilization of bowel in the left upper quadrant. A segment of biliary limb was devascularized from mesentery. There was adequate length of small bowel for revision. Devascularized segment of the biliary limb was divided with a KEIKO stapler. At the previous jejunojejunostomy site, this was resected transversely with a single fire of the KEIKO stapler and the staple line inverted with interrupted Lembert suture of 3-0 silk. Bowel was dilated. There was more than adequate lumen. Just distal to this, a jejunojejunostomy was performed with 2 fires of the KEIKO stapler. Staple line was reinforced with Lembert sutures of 3-0 silk. Mesenteric defect closed with 2-0 silk and 3-0 silk. Staple line reinforced with interrupted sutures of 3-0 silk Lembert. Abdominal cavity thoroughly irrigated. Small bowel was carefully inspected from the Deepa limb, biliary limb throughout the small bowel to the cecum x3. Seromuscular tear was closed with interrupted sutures of Lembert 3-0 silk. Good hemostasis noted. Abdominal cavity thoroughly irrigated. Operating crew's gloves were changed. Abdominal cavity irrigated. Irrigant evacuated. Colon was inspected in the left upper quadrant where adhesions were close by and there was no violation. Terminal ileum was identified. Cecum identified. Right colon noted to be normal. Sponge, needle, and instrument counts were correct. Seprafilm was placed in the left upper quadrant and pelvis and between the viscera and abdominal wall, and fascia approximated with continuous suture of #1 PDS. Skin and subcutaneous tissues irrigated. Skin loosely approximated with richelle and JUAN LUIS dressing applied. The patient tolerated the procedure well. Job ID: [id number]
[2019-11-04] MEDS: Meropenem 2 GM in Sodium Chloride 0.9% 100 ML IVPB SCH (22:18)
[2019-11-04] MEDS: Enoxaparin Sodium 40 MG/0.4 ML SYRINGE SC SCH (22:18)
[2019-11-05 05:20] LABS: ALT (SGPT) 19 U/L (8-55); AST (SGOT) 19 U/L (5-34); Albumin 3.2 g/dL (3.4-4.8); Alkaline Phosphatase 67 U/L (40-110); Anion Gap 12 mmol/L (10-20); BUN (Urea Nitrogen) 17 mg/dL (9.8-20.1); Bilirubin, Total 0.6 mg/dL (0.2-1.2); Calc. Creatinine Clearance 93 mL/min (70-130); Calcium 8.1 mg/dL (7.8-10.44); Carbon Dioxide 27 mmol/L (23-31); Chloride 110 mmol/L (98-107); Estimated GFR-MDRD 88; Glucose 184 mg/dL (83-110); Lipase 74 U/L (8-78); Potassium 3.9 mmol/L (3.5-5.1); Protein, Total 5.2 g/dL (6.0-8.3); Sodium 145 mmol/L (136-145)
[2019-11-05 05:30] LABS: Band 35 % (5-11); Eosinophils 4 % (0-10); Hemoglobin 14.1 g/dL (12.0-16.0); Lymphocytes 15 % (21-51); MDiff Complete? YES; Mean Corpuscular HGB CONC 32.6 g/dL (32.0-36.0); Mean Corpuscular Hemoglobin 31.6 pg (27.0-31.0); Mean Corpuscular Volume 96.8 fL (78.0-98.0); Mean Platelet Volume 8.4 fL (7.4-10.4); Monocytes 2 % (0-10); Neutrophil 44 % (42-75); Platelet Count 252 thou/uL (130-400); Platelet Morphology Comment Appears Adequate; RBC Distribution Width 12.1 % (11.5-14.5); Red Blood Cell (RBC) Count 4.48 mill/uL (4.20-5.40); White Blood Cell (WBC) Count 6.4 thou/uL (4.8-10.8)
[2019-11-05] MEDS: Lactated Ringer's 1,000 ML IV SCH ×3 (06:17→22:27)
[2019-11-05] MEDS: Meropenem 2 GM in Sodium Chloride 0.9% 100 ML IVPB SCH ×3 (06:17→21:07)
[2019-11-05] MEDS: Pantoprazole 40 MG VIAL IVP SCH (08:10)
--- NOTE | 2019-11-05 15:03 | EKG ---
Test Reason : Blood Pressure : / mmHG Vent. Rate : 073 BPM Atrial Rate : 073 BPM P-R Int : 128 ms QRS Dur : 088 ms QT Int : 416 ms P-R-T Axes : 064 -03 034 degrees QTc Int : 458 ms Normal sinus rhythm Normal ECG Confirmed by MARIZOL LEE DO ([id number]), online content editor DARION WHITE ([id number]) on 11/05/2019 3:02:57 PM Referred By: Confirmed By:MARIZOL LEE DO
[2019-11-05] MEDS: Enoxaparin Sodium 40 MG/0.4 ML SYRINGE SC SCH (21:07)
[2019-11-06] MEDS: Lactated Ringer's 1,000 ML IV SCH ×4 (00:53→19:31)
[2019-11-06] MEDS: Fentanyl 100 MCG/2 ML VIAL SLOW IVP PRN ×3 (05:41→16:43)
[2019-11-06] MEDS: Meropenem 2 GM in Sodium Chloride 0.9% 100 ML IVPB SCH ×3 (06:07→22:50)
[2019-11-06] MEDS: Pantoprazole 40 MG VIAL IVP SCH (08:13)
--- NOTE | 2019-11-06 08:33 | PRG ---
DATE OF SERVICE: 11/06/2019 SUBJECTIVE: She is doing well at the present time. She is up in the chair. Subjectively, she has no complaints. Nasogastric tube and Boo catheter are still in place. Nasogastric tube output has been minimal. PHYSICAL EXAMINATION: LUNGS: Clear to auscultation. HEART: Regular rhythm without tachycardia. ABDOMEN: Abdominal dressing is in place. Abdomen is nontender. A few bowel sounds are present. VITAL SIGNS: Reviewed and are as follows; BP 137/76, pulse 94, respirations 16, temperature 99.9. IMPRESSION: She appears to be stable and progressing. PLAN: Discontinue Boo catheter and nasogastric tube. Keep her n.p.o. except for ice chips. Try to increase ambulation. Job ID: [id number]
[2019-11-06] MEDS: Enoxaparin Sodium 40 MG/0.4 ML SYRINGE SC SCH (19:31)
[2019-11-07] MEDS: Meropenem 2 GM in Sodium Chloride 0.9% 100 ML IVPB SCH ×3 (05:34→23:43)
[2019-11-07] MEDS: Pantoprazole 40 MG VIAL IVP SCH (08:57)
--- NOTE | 2019-11-07 09:00 | PRG ---
DATE OF SERVICE: 11/07/2019 SUBJECTIVE: She continues to make progress. She has had no nausea or vomiting. She is having some diarrhea. She has not had anything to eat yet. She states she is still on antibiotics. She says that she has been ambulatory. OBJECTIVE: GENERAL: She is alert and oriented. CHEST: Clear to auscultation. ABDOMEN: Nontender with active bowel sounds. No tenderness. IMPRESSION: She continues to make satisfactory progress. PLAN: I think her antibiotics need to be discontinued. She can be started on an oral diet. Job ID: [id number]
[2019-11-07] MEDS: Lactated Ringer's 1,000 ML IV SCH ×2 (10:40→15:30)
[2019-11-07] MEDS: Enoxaparin Sodium 40 MG/0.4 ML SYRINGE SC SCH (22:00)
[2019-11-08] MEDS: Lactated Ringer's 1,000 ML IV SCH (02:21)
[2019-11-08] MEDS: Meropenem 2 GM in Sodium Chloride 0.9% 100 ML IVPB SCH (06:08)
[2019-11-08 07:49] VITALS: TEMP 98.2
[2019-11-08 12:15] VITALS: BP 142/72
[2019-11-08] MEDS ORDERED: Cyclobenzaprine 10 MG TAB PO PRN (13:06)
[2019-11-08] MEDS ORDERED: Acetaminophen 500 MG TAB PO PRN (13:06)
[2019-11-08] MEDS: Pantoprazole 40 MG VIAL IVP SCH (13:13)
[2019-11-08] MEDS ORDERED: Cyanocobalamin 1000 MCG/ML VIAL IM SCH (13:15)
[2019-11-08] MEDS ORDERED: Azelastine 137 MCG/Spray 30 ML NS SCH (13:30)
--- NOTE | 2019-11-08 13:41 | DIS ---
DATE OF ADMISSION: 11/04/2019 DATE OF DISCHARGE: 11/08/2019 PROCEDURES DURING HOSPITALIZATION: CT scan of abdomen and pelvis, small-bowel follow-through, laparotomy, extensive adhesiolysis, small-bowel resection, resecting the biliary limb and re-performing the jejunojejunostomy due to prior history of gastric bypass and bowel obstruction and adhesions. HOSPITAL COURSE: A 69-year-old female with prior history of open gastric bypass, open revision of her gastric pouch, open cholecystectomy, right subcostal incision, adhesiolysis that I performed in 2007, status post multiple admissions over the last 5 years with nonoperative treatment of a bowel obstruction, now presents with history of a bowel obstruction, undergone a CAT scan suggesting that, small-bowel follow-through revealed no progression of contrast after 4 to 5 hours. She continued to have nausea, vomiting. She was taken to the operating room. Extensive adhesiolysis undertaken and there was a segment of small bowel in the left upper quadrant adherent to the transverse colon and mesocolon enterotomy was sustained, adherent to the procedure. The small segment of bowel was devascularized from the mesenteric dissection. Jejunojejunostomy and biliary limb had to be resected and anastomosis was performed. Deepa limb anastomosis was performed and then a new jejunojejunostomy performed. Postoperatively, she did well, NG tube continued. As GI function resumed, NG tube output diminished. NG tube was removed. She was started on liquids and full liquids, tolerated diet, having bowel movements. At this point, she has been discharged home with followup in my office in 2 to 3 weeks. Job ID: [id number]
[2019-11-08] MEDS ORDERED: Dicyclomine 20 MG TAB PO SCH (17:00)
[2019-11-08] MEDS ORDERED: Ascorbic Acid 500 mg Chewable Tablet PO SCH (21:00)
[2019-11-08] MEDS ORDERED: Calcium Carbonate 600 MG TAB PO SCH (21:00)
[2019-11-08] MEDS ORDERED: Citalopram 20 MG TAB PO SCH (21:00)
[2019-11-08] MEDS ORDERED: Polyethylene Glycol 3350 17 GM Packet PO SCH (21:00)
[2019-11-09] MEDS ORDERED: Levothyroxine Sodium 125 MCG TAB PO SCH (06:00)
[2019-11-09] MEDS ORDERED: Oxybutynin 5 MG TAB PO SCH (09:00)
[2019-11-09] MEDS ORDERED: Mometasone Furoate 30 PUFF 220 MCG INH SCH (09:00)
[2019-11-09] MEDS ORDERED: Latanoprost 0.005% Ophth Soln 2.5 ml Bottle EA EYE SCH (09:00)
[2019-11-09] MEDS ORDERED: Bupropion 100 MG SR TAB PO SCH (09:00)
[2019-11-09] MEDS ORDERED: Diazepam 2 MG TAB PO SCH (09:00)
[2019-11-09] MEDS ORDERED: Montelukast Sodium 10 mg Tablet PO SCH (09:00)
[2019-11-09] MEDS ORDERED: Vit A,C & E/Lutein/Minerals Tablet PO SCH (09:00)
--- NOTE | 2019-11-10 06:25 | PQF ---
ESSENCE MELISSA RICHARD D MD [id number] [facility] A- [id number] CLINICAL DOCUMENTATION CLARIFICATION FORM: POST DISCHARGE Addendum to original discharge summary date: _no ischemic bowel Late entry note date: __ DATE:11/10/2019 ATTN: John Medeiros Please exercise your independent, professional judgment in responding to the clarification form. Clinical indicators are provided on the bottom of this form for your review Final Diagnosis on the Pathology report: benign small bowel with mild congestion and ischemic change Based on the pathological findings of Ischemic Bowel is this a confirmed diagnosis for this patient? [ ] Yes, this is a secondary diagnosis for this patient [ ] Other (additional comments): [ ] Unable to determine For continuity of documentation, please document condition throughout progress notes and discharge summary. Thank You. CLINICAL INDICATORS - SIGNS/ SYMPTOMS / LABS / RESULTS AND LOCATION IN MR Pathology report p1 4/3 Benign Small bowel with mild congestion and ischemic change H&P p1 4/2 Dr Dumont she began experiencing onset of lower abdominal pain H&P p1 4/2 Dr Dumont CAT scan revealed changes consistent with a distal bowel obstruction with the small bowel dialtion Operative report p2 4/2 segment of biliary limb was devascularized from mesentery RISK FACTORS / RESULTS AND LOCATION IN MR ED Notes p1 4/1 History of Bowel obstruction H&P p1 4/2 69-year old female H&P p1 4/2 s/p open gastric bypass H&P p2 4/2 s/p adhesiolysis 2007 H&P p3 4/2 Chronic Constipation Operative report p1 4/2 Hx of Morbid obesity TREATMENTS / RESULTS AND LOCATION IN MR Operative report p1 4/2 Extensive Adhesiolysis Operative report p1 4/2 Revision of Rmlm-hw-q-jejunojejunostomy OCT 05 IVF LR 1L OCT 05 IV Meropenem 2gm OCT 05 IV Morphine 4mg OCT 05 IV Zofran 4mg OCT [address] abdomen 11/02 Small Bowel X-ray 11/03 (This form is maintained as a part of the permanent medical record) 2014 [employer]. All Rights Reserved [email or web address]
--- NOTE | 2019-11-15 08:33 | PQF ---
ESSENCE MELISSA RICHARD D MD [id number] [facility] A- [id number] CLINICAL DOCUMENTATION CLARIFICATION FORM: POST DISCHARGE Addendum to original discharge summary date: ____ Late entry note date: __ DATE:11/14/2019 ATTN: John Medeiros Please exercise your independent, professional judgment in responding to the clarification form. Clinical indicators are provided on the bottom of this form for your review In your clinical opinion based on clinical findings below, can you please identify the etiology of SBO if due to Please check appropriate box(s): [ ] Adhesion with completed obstruction [ ] Postprocedural completed intestinal obstruction [ ] Postprocedural compilation from gastric bypass [ ] Other diagnosis [ ] Unable to determine For continuity of documentation, please document condition throughout progress notes and discharge summary. Thank You. CLINICAL INDICATORS - SIGNS / SYMPTOMS / LABS Pathology report p1 4/3 Benign Small bowel with mild congestion and ischemic change H&P p1 4/2 Dr Dumont she began experiencing onset of lower abdominal pain Operative report p1 4/2 Presents with a completed bowel obstruction by small- bowel followthrough and CAT scan with elevation of her lipase and distention of her gastric remnant duodenum Operative report p1 4/2 Extensive adhesiolysis for 2 hours Operative report p2 4/2 A segment of biliary limb was devascularized from mesentery RISK FACTORS H&P p3 4/2 Chronic Constipation Operative report p1 4/2 69 year-old female Operative report p1 4/2 hx of rhoux-en y gastric bypass Operative report p1 4/2 s/p revision of gastric pouch Operative report p1 4/2 s/p open cholecystectomy Operative report p1 4/2 Hx of Morbid obesity TREATMENTS: Operative report p1 4/2 Extensive adhesiolysis Operative report p1 4/2 Resection of biliary limb segment with revision of Deepa-en-y jejunojenostomy MAR 4/2 IVF LR 1L MAR 4/2 IV Meropenem 2gm OCT 05 IV Morphine 4mg OCT 05 IV Zofran 4mg OCT [address] abdomen 11/02 Small Bowel X-ray 11/03 (This form is maintained as a part of the permanent medical record) 2014 [employer], [employer]. All Rights Reserved [email or web address]
== END 2019-11-08 15:40 | disposition home or self-care (01) | DRG 331 ==
LOC: ERS 22:50 → T4-B 11-04 01:01 → SURG A 11-04 22:03
PROVIDERS: ADMIT Surgery; ATTEND Specialist
PROC: 0D1A0ZA Bypass Jejunum to Jejunum, Open Approach (ICD-10-PCS; principal; 2019-11-04)
PROC: 0DNW0ZZ Release Peritoneum, Open Approach (ICD-10-PCS; 2019-11-04)
PROC: 3E0M05Z Introduction of Adhesion Barrier into Peritoneal Cavity, Open Approach (ICD-10-PCS; 2019-11-04)
DX: K56.52 Intestinal adhesions [bands] with complete obstruction (principal); K59.09 Other constipation; R79.89 Other specified abnormal findings of blood chemistry; Z90.49 Acquired absence of other specified parts of digestive tract; Z88.8 Allergy status to other drugs, medicaments and biological substances; Z91.013 Allergy to seafood; Z79.899 Other long term (current) drug therapy; Z79.890 Hormone replacement therapy; Z98.84 Bariatric surgery status
CPT/HCPCS: 36415; 71045; 74176; 74250; 80053; 83605; 83690; 84484; 85025; 88307; 93005; 96361; 96374; 96375; C9113; J0360; J1100; J1200; J1650; J2001; J2185; J2270; J2405; J2704; J3010; J3411; J3490; Q9963

== ENCOUNTER 2019-11-11 01:58 | Inpatient (IN) | payer MEDICARE, BC, OTHER ==
[2019-11-11] MEDS ORDERED: Ondansetron PF 4 MG/2 ML Vial ONE (02:45)
[2019-11-11 03:16] LABS: #Eosinphils 0.2 thou/uL (0.0-0.7); #Lymphocytes 1.1 thou/uL (1.20-3.40); #Monocytes 1.2 thou/uL (0.11-0.59); %Basophils 0.3 % (0.0-1.0); %Eosinophils 1.5 % (0.0-10.0); %Lymphocytes 8.4 % (21.0-51.0); %Monocytes 9.7 % (0.0-10.0); Hemoglobin 12.5 g/dL (12.0-16.0); Mean Corpuscular HGB CONC 32.7 g/dL (32.0-36.0); Mean Corpuscular Hemoglobin 31.6 pg (27.0-31.0); Mean Corpuscular Volume 96.6 fL (78.0-98.0); Mean Platelet Volume 8.4 fL (7.4-10.4); Platelet Count 377 thou/uL (130-400); RBC Distribution Width 12.1 % (11.5-14.5); Red Blood Cell (RBC) Count 3.94 mill/uL (4.20-5.40); White Blood Cell (WBC) Count 12.5 thou/uL (4.8-10.8)
[2019-11-11 03:32] LABS: Bacteria/HPF None Seen HPF (None Seen); Bilirubin Negative (Negative); Blood, Urine Negative (Negative); Clarity Turbid (Clear); Glucose, Urine (Dipstick) Normal (Negative); Leukocyte Negative Leu/uL (Negative); Mucous/LPF 1+ LPF (<2+); Nitrite Negative (Negative); Protein, Urine (Dipstick) 30 mg/dL (Neg-Trace); RBC/HPF 0-3 HPF (0-3); Squamous Epithelial 0-3 HPF (0-3); WBC/HPF 0-3 HPF (0-3)
[2019-11-11 03:34] LABS: ALT (SGPT) 40 U/L (8-55); AST (SGOT) 32 U/L (5-34); Albumin 3.4 g/dL (3.4-4.8); Alkaline Phosphatase 97 U/L (40-110); Anion Gap 13 mmol/L (10-20); BUN (Urea Nitrogen) 7 mg/dL (9.8-20.1); Bilirubin, Total 0.5 mg/dL (0.2-1.2); Calc. Creatinine Clearance 0 mL/min (70-130); Calcium 9.2 mg/dL (7.8-10.44); Carbon Dioxide 27 mmol/L (23-31); Chloride 103 mmol/L (98-107); Estimated GFR-MDRD Greater than 90; Globulin 2.7 g/dL (2.4-3.5); Glucose 128 mg/dL (83-110); Lipase 72 U/L (8-78); Potassium 3.8 mmol/L (3.5-5.1); Protein, Total 6.1 g/dL (6.0-8.3); Sodium 139 mmol/L (136-145)
--- NOTE | 2019-11-11 07:08 | CT ---
CT ABDOMEN AND PELVIS WITH IV CONTRAST: Date: 11/11/2019 INDICATION: 69-year-old female with abdominal pain, vomiting, and history of small bowel obstruction; history of multiple small bowel obstructions since an abdominal surgery in 2018; recently admitted and had emerg ent bowel surgery 1 week ago. FINDINGS: There are small bilateral pleural effusions. There is bibasilar atelectasis. There are bilateral breast implants. There is a small peripheral hypodensity within segment 5 of the right hepatic lobe that has been stab le since 2016 and has the appearance of a small hemangioma. Gallbladder is surgically absent. There is postsurgical change consistent with prior gastric bypass. There is mild dilatation of loops of jejunum, as well as the duodenum in the upper abdomen. There is wall thickening involving the mid to distal jejunum. There are scattered foci of fluid and gas collections within the abdominal cavity. One of the largest is seen within the anterior abdomen measuring approximately 11.6 x 1.2 cm in its greatest mediolater al and AP dimensions, respectively, on image 46 of series 2. An additional fluid and gas collection i s seen within the left paracolic gutter measuring approximately 2.6 x 5.7 cm, image 47 of series 2 an d image 121 of coronal series. There are small fluid collections seen scattered throughout the mesent jorge. An additional smaller fluid and gas collection is seen just inferior to the splenic flexure of t he colon on image 28 of series 2 measuring 4.9 x 4.6 cm. The distal small bowel is nonobstructed. A s mall amount of fluid is seen within the right paracolic gutter as well as the pelvis. Small amount of gas is seen within the upper abdominal wall just cephalad to the patient's skin incision. There is posterolateral spinal instrumentation involving L3 through S1. There is left-sided SI joint arthrodesis. There is scattered degenerative and osteoarthritic change. IMPRESSION: 1. Scattered fluid and gas collections within the abdomen. Findings are suspicious for multifocal ab scesses within the abdominal cavity. Prominence of the jejunum, in terms of diameter, as well as port ions of the duodenum, may reflect a reactive ileus or mild partial small bowel obstruction. 2. Small bilateral pleural effusions and bibasilar atelectasis. 3. Stable small hepatic hypodensity likely reflective of small hemangioma. 4. Surgical consultation is recommended. POS: IMANI
[2019-11-11] MEDS ORDERED: Piperacillin/Tazobactam 4.5 GM VIAL ONE (08:05)
--- NOTE | 2019-11-11 08:28 | RAD ---
ABDOMEN 2 VIEWS CHEST 1 VIEW: Date: 11/11/2019 HISTORY: History of small bowel obstruction with vomiting. COMPARISON: Chest dated 11/04/2019. FINDINGS: Minimal bilateral costophrenic angle blunting and some linear and parenchymal changes in the lung bas es. Extensive postop changes in the upper abdomen, particularly centrally and the left upper quadrant . There does appear to be an air fluid level within the region of the antrum of the stomach, which is minimally dilated, but stable from earlier CT of 11/11/2019. There are a few scattered air fluid lev els in the small bowel, which is upper range of normal in size. Some of the patchy extraluminal gas s een on prior CT is not definitively demonstrated on this study. IMPRESSION: 1. A few scattered air fluid levels in the small bowel and stomach. 2. Extensive postoperative changes involving the stomach and left upper quadrant. 3. Postoperative changes of the lumbar spine and left SI joint. 4. Minimal linear and parenchymal changes in the lung bases and costophrenic angle blunting. 5. Continue short-term follow-up. POS: RRE
[2019-11-11] MEDS ORDERED: Ondansetron PF 4 MG/2 ML Vial IVP PRN ×2 (09:59→14:31)
[2019-11-11] MEDS ORDERED: Ondansetron ODT 4 MG TAB PO PRN (09:59)
[2019-11-11] MEDS ORDERED: Lactated Ringer's 1,000 ML IV SCH (10:00)
[2019-11-11] MEDS ORDERED: Iopamidol-370 76% 500 ML 1 ML ONE (12:40)
[2019-11-11] MEDS ORDERED: Morphine 4 MG/ML VIAL SLOW IVP PRN (14:31)
[2019-11-11] MEDS ORDERED: hydrALAZINE 20 MG/ML VIAL SLOW IVP PRN (14:31)
[2019-11-11] MEDS ORDERED: Morphine 2 MG/ML SYRINGE SLOW IVP PRN (14:31)
[2019-11-11] MEDS ORDERED: Ondansetron ODT 8 MG TAB SL PRN (14:33)
--- NOTE | 2019-11-11 15:24 | HP ---
HISTORY OF PRESENT ILLNESS: Demetrice Jensen is a 69-year-old female, who was admitted last night from the emergency room because of nausea and vomiting. Last night, , she came into the hospital because morning late Friday night, she began having some nausea and vomiting. Yesterday morning, she had a bowel movement. Since has been admitted to the emergency room last night, she has not had any nausea or vomiting. The patient in the emergency room underwent a 3-view abdomen and abdominal pelvic CAT scan revealing changes consistent with probable ileus. She had multiple loculated fluid collections, probably district representative of recent surgery. On November 04, 2019, she underwent laparotomy, extensive adhesiolysis, small bowel resection and 2-0 anastomosis revising her jejunal jejunostomy. Postoperatively, she was discharged home, tolerating her diet and having bowel movements. She denies having any fever. Since being in the hospital, she has not had a fever. In the emergency room, her white count was 12 and hemoglobin 12. Her differential was normal. She reports abdominal pain is not worse, in fact is improving daily. ALLERGIES: MULTIPLE, CODEINE, TRAMADOL, ALPRAZOLAM, HYDROCODONE . SOCIAL HISTORY: Tobacco, none. Alcohol, none. MEDICATIONS: At home. See recent list from history and physical. PAST SURGICAL HISTORY: See recent history and physical. PAST MEDICAL HISTORY: See recent history and physical. REVIEW OF SYSTEMS: See recent history and physical. FAMILY HISTORY: See recent history and physical. REVIEW OF SYSTEMS: Noncontributory. PHYSICAL EXAMINATION: VITAL SIGNS: Temperature 97.9, heart rate 80, respiratory rate 20, blood pressure 158/82. LUNGS: Clear to auscultation. CARDIAC: Regular rate and rhythm without murmur or gallop. ABDOMEN: Soft, mild tympany, and midline wound looks good. EXTREMITIES: No ankle edema. LABORATORY DATA: White count 12, hemoglobin 12.5. Basic metabolic profile is normal. BUN 7, creatinine 0.61. ASSESSMENT/PLAN: 1. Postoperative nausea and vomiting. Seven days after extensive adhesiolysis, laparotomy to anastomosis revising her jejunojejunostomy. At this point, I would continue hydration. Continue ice chips. Hopefully, avoid an NG tube. Follow her clinically. Hopefully, GI function will resume. There is no evidence of sepsis. There is no evidence of peritonitis. There is no abscess fluid seen on CAT scan or postoperative fluid collections. 2. Bariatric surgery status. 3. History of cholecystectomy. 4. The patient gives a history of intermittent dysphagia and has seen Dr. Koehler regarding this and she had discussed with his PA, possible upper endoscopy, but they deferred this. I have reminded her that this episode is not related to that. Job ID: [id number]
[2019-11-11] MEDS: Lactated Ringer's 1,000 ML IV SCH (17:59)
[2019-11-11] MEDS: Enoxaparin Sodium 40 MG/0.4 ML SYRINGE SC SCH (21:35)
[2019-11-11] MEDS: Famotidine/PF 20 mg/2ml Vial SLOW IVP SCH (21:36)
[2019-11-12] MEDS: Lactated Ringer's 1,000 ML IV SCH ×3 (04:00→11:51)
[2019-11-12 06:13] VITALS: BMI 25.0
--- NOTE | 2019-11-12 08:12 | RAD ---
2 views abdomen: 11/12/2019 COMPARISON: 12/22/2016, 11/11/2019 HISTORY: Reevaluate ileus FINDINGS: Numerous postoperative suture lines are present on the left. Scattered upper abdominal post operative clips are present as well. The upright imaging demonstrates no evidence for free intraperitoneal air. The bowel gas pattern appe ars nonobstructed. Gaseous distention noted within the upper abdomen with an air-fluid level on the prior examination is no longer seen. Of note, bowel within the lower abdomen and pelvis is not well assessed secondary to paucity of bowel gas. Extensive postoperative hardware of the lumbar spine noted. IMPRESSION: 2 view examination of the abdomen as detailed above.
[2019-11-12] MEDS: Famotidine/PF 20 mg/2ml Vial SLOW IVP SCH (08:30)
[2019-11-12] MEDS ORDERED: Acetaminophen 500 MG TAB PO PRN (15:33)
[2019-11-12] MEDS ORDERED: Mometasone Furoate 120 PUFF 220 MCG INH PRN (15:33)
--- NOTE | 2019-11-12 15:58 | PRG ---
DATE OF SERVICE: 11/12/2019 SUBJECTIVE: Demetrice Jensen is doing well. Yesterday, she was re-admitted for a suspected bowel obstruction or ileus. More likely, ileus. She had a paucity of bowel sounds. She was having nausea and vomiting. NG tube was not placed because she has not had any nausea or vomiting since being seen in the emergency room and evaluated here in the hospital. In fact, a few hours after I saw her, she had multiple bowel movements and feels much better. Her full liquid diet was started last night. Bariatric diet was started this morning, although she was given a hamburger for lunch from her bariatric diet orders. The patient has multiple allergies. She has taken Tylenol mainly for pain. She states that tramadol causes "pancreatic spasm". She states that she would be willing to try tramadol again as sometimes Tylenol is inadequate for pain. I have written a prescription for tramadol for home use, and if she tolerates in the hospital, she can use this. Otherwise, it will be discarded. OBJECTIVE: LUNGS: Clear to auscultation. CARDIAC: Regular rate and rhythm without murmur or gallop. ABDOMEN: Soft and nontender. Good bowel sounds. Positive bowel movements plus flatus. EXTREMITIES: Unremarkable. ASSESSMENT AND PLAN: Postoperative ileus, improving. She is on a bariatric diet. We could improve her bariatric selections considering her bariatric diet order. Hamburger is not appropriate. This is an order problem with dietary, not the patient. We will observe the patient today. If she continues to do well, she can be discharged home tomorrow. Dr. Young is covering over the weekend. Job ID: [id number]
[2019-11-12] MEDS: Dicyclomine 20 MG TAB PO SCH ×2 (15:59→21:12)
[2019-11-12] MEDS ORDERED: (Biotin [Mega Biotin] 10,000 MCG) PO SCH (21:00)
[2019-11-12] MEDS: Ascorbic Acid 500 mg Chewable Tablet PO SCH (21:13)
[2019-11-12] MEDS: Montelukast Sodium 10 mg Tablet PO SCH (21:14)
[2019-11-12] MEDS: Calcium Carbonate 600 MG TAB PO SCH (21:14)
[2019-11-12] MEDS: Azelastine 137 MCG/Spray 30 ML NS SCH (21:14)
[2019-11-12] MEDS: Citalopram 20 MG TAB PO SCH (21:14)
[2019-11-12] MEDS: Vit A,C & E/Lutein/Minerals Tablet PO SCH (21:14)
[2019-11-12] MEDS: Bupropion 100 MG SR TAB PO SCH (21:14)
[2019-11-12] MEDS: Enoxaparin Sodium 40 MG/0.4 ML SYRINGE SC SCH (21:15)
[2019-11-12] MEDS: Polyethylene Glycol 3350 17 GM Packet PO SCH (21:15)
[2019-11-12] MEDS: Latanoprost 0.005% Ophth Soln 2.5 ml Bottle EA EYE SCH (21:15)
[2019-11-12] MEDS: traMADol HCl 50 MG TAB PO PRN (21:22)
[2019-11-13] MEDS ORDERED: Calcium Carbonate 500 MG ChewTAB PO PRN (01:30)
[2019-11-13] MEDS: Levothyroxine Sodium 112 MCG TAB PO SCH (04:52)
[2019-11-13] MEDS: Calcium Carbonate 500 MG ChewTAB PO PRN ×2 (04:52→20:26)
[2019-11-13] MEDS: Vit A,C & E/Lutein/Minerals Tablet PO SCH ×2 (08:05→20:26)
[2019-11-13] MEDS: Citalopram 20 MG TAB PO SCH ×2 (08:05→20:26)
[2019-11-13] MEDS: Ascorbic Acid 500 mg Chewable Tablet PO SCH ×2 (08:06→20:26)
[2019-11-13] MEDS: Oxybutynin 5 MG TAB PO SCH (08:06)
[2019-11-13] MEDS: Bupropion 100 MG SR TAB PO SCH ×2 (08:06→20:26)
[2019-11-13] MEDS: Dicyclomine 20 MG TAB PO SCH ×4 (08:06→20:26)
[2019-11-13] MEDS: Calcium Carbonate 600 MG TAB PO SCH ×2 (08:07→20:25)
[2019-11-13] MEDS: Polyethylene Glycol 3350 17 GM Packet PO SCH ×2 (08:07→20:27)
[2019-11-13] MEDS: Diazepam 2 MG TAB PO SCH (08:07)
--- NOTE | 2019-11-13 15:46 | PDOC.GSPN ---
Surgery Progress Note: Subj - Subjective Narrative: Patient had a rough night. She states that the eggs and potatoes that she was given for breakfast were too hard for her to eat and by the time that her lunch arrives she was so hungry she tried to eat it even though it was a hamburger and she did not think that she would tolerate it well. She is supposed to be on a soft diet. She was up until late in the night with crampy abdominal pain but she does feel like it finally moved through. She is only had liquids today and has tolerated that. Her abdomen is soft and her incisions look good. She has some mild diffuse tenderness but nothing really focal and her vitals look good. Assessment/plan: Ileus versus partial small bowel obstruction still symptomatic and did not tolerate advancement of diet yesterday. I have clarified her diet as a mechanical soft diet we will see how she does with that today. If she tolerates that she may be ready for discharge home tomorrow. I am going to recheck her labs in the morning as well. Surgery Progress Note: Obj - Vital signs Vital signs: Vital Signs - Most Recent Temp Pulse Resp BP Pulse Ox 97.4 F L 80 18 146/84 H 97 11/13/19 11:09 11/13/19 11:09 11/13/19 11:09 11/13/19 11:09 11/13/19 11:09 Surgery Progress Note: Results - Labs Result Diagrams: 11/11/19 03:01 11/11/19 03:01
[2019-11-13] MEDS: Montelukast Sodium 10 mg Tablet PO SCH (20:25)
[2019-11-13] MEDS: traMADol HCl 50 MG TAB PO PRN (20:26)
[2019-11-13] MEDS: Enoxaparin Sodium 40 MG/0.4 ML SYRINGE SC SCH (20:27)
[2019-11-13] MEDS: Azelastine 137 MCG/Spray 30 ML NS SCH (20:28)
[2019-11-13] MEDS: Latanoprost 0.005% Ophth Soln 2.5 ml Bottle EA EYE SCH (20:28)
[2019-11-14] MEDS: Calcium Carbonate 500 MG ChewTAB PO PRN (05:56)
[2019-11-14] MEDS: Levothyroxine Sodium 112 MCG TAB PO SCH (05:56)
[2019-11-14 08:12] VITALS: TEMP 97.7
[2019-11-14] MEDS: Polyethylene Glycol 3350 17 GM Packet PO SCH (08:56)
[2019-11-14] MEDS: Bupropion 100 MG SR TAB PO SCH (08:57)
[2019-11-14] MEDS: Ascorbic Acid 500 mg Chewable Tablet PO SCH (08:57)
[2019-11-14] MEDS: Calcium Carbonate 600 MG TAB PO SCH (08:58)
[2019-11-14] MEDS: Citalopram 20 MG TAB PO SCH (08:58)
[2019-11-14] MEDS: Vit A,C & E/Lutein/Minerals Tablet PO SCH (08:58)
[2019-11-14] MEDS: Oxybutynin 5 MG TAB PO SCH (08:59)
[2019-11-14] MEDS: Dicyclomine 20 MG TAB PO SCH ×2 (09:00→14:02)
[2019-11-14 10:02] LABS: #Basophils 0.1 thou/uL (0.0-0.2); #Eosinphils 0.2 thou/uL (0.0-0.7); #Monocytes 0.7 thou/uL (0.11-0.59); %Basophils 0.7 % (0.0-1.0); %Eosinophils 1.9 % (0.0-10.0); %Lymphocytes 12.4 % (21.0-51.0); %Monocytes 9.3 % (0.0-10.0); %Neutrophils 75.8 % (42.0-75.0); Hemoglobin 11.3 g/dL (12.0-16.0); Mean Corpuscular HGB CONC 32.4 g/dL (32.0-36.0); Mean Corpuscular Hemoglobin 31.3 pg (27.0-31.0); Mean Corpuscular Volume 96.8 fL (78.0-98.0); Mean Platelet Volume 7.2 fL (7.4-10.4); Platelet Count 524 thou/uL (130-400); RBC Distribution Width 12.2 % (11.5-14.5); Red Blood Cell (RBC) Count 3.62 mill/uL (4.20-5.40); White Blood Cell (WBC) Count 7.9 thou/uL (4.8-10.8)
[2019-11-14 10:25] LABS: ALT (SGPT) 28 U/L (8-55); AST (SGOT) 22 U/L (5-34); Albumin 3.3 g/dL (3.4-4.8); Alkaline Phosphatase 92 U/L (40-110); Anion Gap 12 mmol/L (10-20); BUN (Urea Nitrogen) 5 mg/dL (9.8-20.1); Bilirubin, Total 0.3 mg/dL (0.2-1.2); Calc. Creatinine Clearance 84 mL/min (70-130); Calcium 8.9 mg/dL (7.8-10.44); Carbon Dioxide 31 mmol/L (23-31); Chloride 101 mmol/L (98-107); Estimated GFR-MDRD Greater than 90; Globulin 2.4 g/dL (2.4-3.5); Glucose 136 mg/dL (83-110); Potassium 3.5 mmol/L (3.5-5.1); Protein, Total 5.7 g/dL (6.0-8.3); Sodium 140 mmol/L (136-145)
[2019-11-14] MEDS: Diazepam 2 MG TAB PO SCH (10:37)
[2019-11-14 12:02] VITALS: BP 125/75
--- NOTE | 2019-11-16 05:35 | PQF ---
[employer] Living Advisor Crystal Reports Winform Viewer ESSENCE MELISSA RICHARD D MD [id number] [facility] A- [id number] CLINICAL DOCUMENTATION CLARIFICATION FORM: POST DISCHARGE Addendum to original discharge summary date: ____ Late entry note date: __ DATE: 11/16/19 ATTN:John Dumont Please exercise your independent, professional judgment in responding to the clarification form. Clinical indicators are provided on the bottom of this form for your review Can you please further clarify the diagnosis being treated and evaluated? Please check appropriate box(s): [ ] Pleural effusion and Atelectasis [ ] Insignificant Abdomen/Pelvis CT findings [ ] Other diagnosis please specify [ ] Unable to determine In addition, please specify: Present on Admission (POA): [ ] Yes [ ] No [ ] Unable to determine For continuity of documentation, please document condition throughout progress notes and discharge summary. Thank You. CLINICAL INDICATORS - SIGNS / SYMPTOMS / LABS CAT Scan 11/10 pg.1 - Findings: there are small bilateral pleural effusion. There is bibasilar atelectasis H and P pg.1- ON November 04, 2019 she underwent laparotomy, extensive adhesiolysis , small bowel resection RISK FACTORS Bariatric surgery status- H and P pg.2 Postoperative ileus-PN 11/11 pg.1 TREATMENTS: Abdomen/Pelvis CT 11/10 Acute abdomen series 11/10 Abdomen X-ray 11/11 IV Fluids- MAR Incentive Spirometry- Patient care [employer] Advisor Crystal Reports Winform Viewer (This form is maintained as a part of the permanent medical record) 2014 [employer]. All Rights Reserved [email or web address]
[2019-12-03] MEDS ORDERED: Cyanocobalamin 1000 MCG/ML VIAL IM SCH (09:00)
== END 2019-11-14 14:08 | disposition home or self-care (01) | DRG 390 ==
LOC: ERS 01:58 → SURG A 07:40
PROVIDERS: ADMIT Specialist; ATTEND Specialist
DX: K91.31 Postprocedural partial intestinal obstruction (principal); Y83.8 Other surgical procedures as the cause of abnormal reaction of the patient, or of later complication, without mention of misadventure at the time of the procedure; E03.9 Hypothyroidism, unspecified; M81.0 Age-related osteoporosis without current pathological fracture; J32.9 Chronic sinusitis, unspecified; N32.81 Overactive bladder; H35.30 Unspecified macular degeneration; F41.9 Anxiety disorder, unspecified; F32.9 Major depressive disorder, single episode, unspecified; Z88.5 Allergy status to narcotic agent; Z88.8 Allergy status to other drugs, medicaments and biological substances; R11.2 Nausea with vomiting, unspecified; Z79.899 Other long term (current) drug therapy; Z79.890 Hormone replacement therapy; Z98.84 Bariatric surgery status; Z90.49 Acquired absence of other specified parts of digestive tract; Z90.710 Acquired absence of both cervix and uterus
CPT/HCPCS: 36415; 74019; 74022; 74177; 80053; 81003; 81015; 83605; 83690; 85025; 96361; 96365; 96375; J1650; J2405; J2543; Q9967; S0028

== ENCOUNTER 2020-05-04 13:48 | Outpatient (CLI) | payer MEDICARE, BC, OTHER ==
--- NOTE | 2020-05-04 14:39 | MMO ---
Bilateral MAMMO Bilat Screen [facility]. CLINICAL HISTORY: Patient is 69 years old and is seen for screening. The patient has no family history of breast cancer. The patient has a history of cervical cancer 1975. The patient has a history of right Excisional Biopsy in February, - benign - AXILLARY LYMPH NODE REMOVAL, Explantation in 2005, Implants in 2005 and Implants in 1985. VIEWS: The views performed were: bilateral craniocaudal with tomosynthesis and bilateral mediolateral oblique with tomosynthesis. FILMS COMPARED: The present examination has been compared to prior imaging studies performed at [facility] on 04/23/2018 and 04/29/2019. This study has been interpreted with the assistance of computer-aided detection. MAMMOGRAM FINDINGS: The breasts are heterogeneously dense, which could obscure a lesion on mammography. There are stable benign appearing calcifications seen in both breasts. There are no suspicious masses, suspicious calcifications, or new areas of architectural distortion. IMPRESSION: THERE IS NO MAMMOGRAPHIC EVIDENCE OF MALIGNANCY. A ROUTINE FOLLOW-UP MAMMOGRAM IN 1 YEAR IS RECOMMENDED. THE RESULTS OF THIS EXAM WERE SENT TO THE PATIENT. ACR BI-RADS Category 2 - Benign finding MAMMOGRAPHY NOTE: 1. A negative mammogram report should not delay a biopsy if a dominant of clinically suspicious mass is present. 2. Approximately 10% to 15% of breast cancers are not detected by mammography. 3. Adenosis and dense breasts may obscure an underlying neoplasm. Reported by: STEPHANIE GUILLEN MD Electonically Signed: [id number]
== END 2020-05-04 13:49 | disposition home or self-care (01) ==
LOC: BICMAMMO 13:48
PROVIDERS: ATTEND Internal Medicine
DX: Z12.31 Encounter for screening mammogram for malignant neoplasm of breast (principal); Z85.41 Personal history of malignant neoplasm of cervix uteri; Z98.82 Breast implant status
CPT/HCPCS: 77063; 77067

== ENCOUNTER 2021-01-27 10:05 | Emergency (ER) | payer MEDICARE, OTHER ==
[2021-01-27 10:43] LABS: #Basophils 0.1 thou/uL (0.0-0.2); #Lymphocytes 1.4 thou/uL (1.20-3.40); #Monocytes 0.5 thou/uL (0.11-0.59); #Neutrophils 6.9 thou/uL (1.40-6.50); %Basophils 0.8 % (0.0-1.0); %Eosinophils 0.3 % (0.0-10.0); %Lymphocytes 15.2 % (21.0-51.0); %Monocytes 5.7 % (0.0-10.0); %Neutrophils 77.9 % (42.0-75.0); Mean Corpuscular HGB CONC 31.5 g/dL (32.0-36.0); Mean Corpuscular Hemoglobin 29.7 pg (27.0-31.0); Mean Corpuscular Volume 94.4 fL (78.0-98.0); Mean Platelet Volume 8.7 fL (7.4-10.4); Platelet Count 296 thou/uL (130-400); Red Blood Cell (RBC) Count 4.36 mill/uL (4.20-5.40); White Blood Cell (WBC) Count 8.8 thou/uL (4.8-10.8)
[2021-01-27 11:35] LABS: ALT (SGPT) 19 U/L (8-55); AST (SGOT) 25 U/L (5-34); Albumin 3.9 g/dL (3.4-4.8); Alkaline Phosphatase 90 U/L (40-110); BUN (Urea Nitrogen) 14 mg/dL (9.8-20.1); Bilirubin, Total 0.4 mg/dL (0.2-1.2); Calc. Creatinine Clearance 0 mL/min (70-130); Calcium 8.8 mg/dL (7.8-10.44); Glucose 170 mg/dL (83-110); Lipase 11 U/L (8-78)
[2021-01-27 11:37] LABS: Chloride 104 mmol/L (98-107); Potassium 4.9 mmol/L (3.5-5.1); Sodium 147 mmol/L (136-145)
[2021-01-27 12:07] LABS: Globulin 2.5 g/dL (2.4-3.5); Protein, Total 6.4 g/dL (5.8-8.1)
[2021-01-27] MEDS ORDERED: Ondansetron PF 4 MG/2 ML Vial ONE (12:29)
[2021-01-27 14:44] LABS: Bilirubin Negative (Negative); Blood, Urine Negative (Negative); Clarity Turbid (Clear); Glucose, Urine (Dipstick) Normal (Negative); Ketone, Urine Negative (Negative); Leukocyte Negative Leu/uL (Negative); Nitrite Negative (Negative); Protein, Urine (Dipstick) Negative (Neg-Trace); Urobilinogen Normal mg/dL (Less than 2)
[2021-01-27 17:17] LABS: Anion Gap 26 mmol/L (10-20); Carbon Dioxide 14 mmol/L (23-31)
== END 2021-01-27 15:38 | disposition home or self-care (01) ==
LOC: ERS 10:05
DX: R11.2 Nausea with vomiting, unspecified (principal); E03.9 Hypothyroidism, unspecified; M81.0 Age-related osteoporosis without current pathological fracture; Z79.899 Other long term (current) drug therapy
CPT/HCPCS: 36415; 74022; 80053; 81003; 83690; 84484; 85025; 93005; 96374; J2405

== ENCOUNTER 2021-04-24 12:20 | Outpatient (CLI) | payer MEDICARE, BC, OTHER | END 2021-04-24 12:21 | disposition home or self-care (01) | LOC: ULT 12:20 | PROVIDERS: ATTEND Nurse Practitioner Acute Care | DX: I63.81 Other cerebral infarction due to occlusion or stenosis of small artery (principal); I08.3 Combined rheumatic disorders of mitral, aortic and tricuspid valves | CPT/HCPCS: 93306; 93880 ==

== ENCOUNTER 2021-05-08 13:53 | Outpatient (CLI) | payer MEDICARE, BC, OTHER | END 2021-05-08 13:54 | disposition home or self-care (01) | LOC: BICMAMMO 13:53 | PROVIDERS: ATTEND Internal Medicine | DX: Z12.31 Encounter for screening mammogram for malignant neoplasm of breast (principal); Z91.89 Other specified personal risk factors, not elsewhere classified; Z98.82 Breast implant status; Z85.41 Personal history of malignant neoplasm of cervix uteri | CPT/HCPCS: 77063; 77067 ==

== ENCOUNTER 2021-06-14 09:33 | Outpatient (CLI) | payer MEDICARE, BC, OTHER ==
[2021-06-14 10:40] LABS: Estimated GFR-MDRD - POC Greater than 90
== END 2021-06-14 09:34 | disposition home or self-care (01) ==
LOC: CT 09:33
PROVIDERS: ATTEND Physician Assistant Medical
DX: R11.0 Nausea (principal); K59.00 Constipation, unspecified; I51.7 Cardiomegaly; Z98.890 Other specified postprocedural states; Z87.19 Personal history of other diseases of the digestive system
CPT/HCPCS: 74177; 82565

== ENCOUNTER 2022-05-21 13:58 | Outpatient (CLI) | payer MEDICARE, BC, OTHER | END 2022-05-21 13:59 | disposition home or self-care (01) | LOC: BICMAMMO 13:58 | PROVIDERS: ATTEND Internal Medicine | DX: Z12.31 Encounter for screening mammogram for malignant neoplasm of breast (principal); Z98.82 Breast implant status; Z98.890 Other specified postprocedural states; Z85.41 Personal history of malignant neoplasm of cervix uteri | CPT/HCPCS: 77063; 77067 ==

== ENCOUNTER 2022-11-15 17:22 | Emergency (ER) | payer MEDICARE, BC, OTHER ==
[2022-11-15] MEDS ORDERED: Acetaminophen 500 MG TAB ONE (18:12)
== END 2022-11-15 20:40 | disposition home or self-care (01) ==
LOC: ERS 17:22
DX: S82.62XA Displaced fracture of lateral malleolus of left fibula, initial encounter for closed fracture (principal); E03.9 Hypothyroidism, unspecified; M81.0 Age-related osteoporosis without current pathological fracture; W18.30XA Fall on same level, unspecified, initial encounter; Y93.89 Activity, other specified
CPT/HCPCS: 29515

== ENCOUNTER 2023-03-04 19:00 | Outpatient (CLI) | payer MEDICARE, BC, OTHER | END 2023-03-04 19:01 | disposition home or self-care (01) | LOC: SLEEPLAB 19:00 | PROVIDERS: ATTEND Internal Medicine Critical Care Medicine | DX: G47.33 Obstructive sleep apnea (adult) (pediatric) (principal); R53.83 Other fatigue; G31.84 Mild cognitive impairment of uncertain or unknown etiology; R51.9 Headache, unspecified; E66.9 Obesity, unspecified; K21.9 Gastro-esophageal reflux disease without esophagitis; F41.9 Anxiety disorder, unspecified; R06.83 Snoring; F32.A Depression, unspecified; R35.1 Nocturia; I10 Essential (primary) hypertension; E11.9 Type 2 diabetes mellitus without complications; Z68.31 Body mass index [BMI] 31.0-31.9, adult | CPT/HCPCS: 95811 ==

== ENCOUNTER 2023-06-05 13:19 | Outpatient (CLI) | payer MEDICARE, BC, OTHER | END 2023-06-05 13:20 | disposition home or self-care (01) | LOC: BICMAMMO 13:19 | PROVIDERS: ATTEND Internal Medicine | DX: Z12.31 Encounter for screening mammogram for malignant neoplasm of breast (principal); Z85.41 Personal history of malignant neoplasm of cervix uteri; Z91.89 Other specified personal risk factors, not elsewhere classified; Z98.82 Breast implant status; M81.0 Age-related osteoporosis without current pathological fracture | CPT/HCPCS: 77063; 77067; 77080 ==

== ENCOUNTER 2024-06-10 13:54 | Outpatient (CLI) | payer MEDICARE, BC, OTHER | END 2024-06-10 13:55 | disposition home or self-care (01) | LOC: BICMAMMO 13:54 | PROVIDERS: ATTEND Internal Medicine | DX: Z12.31 Encounter for screening mammogram for malignant neoplasm of breast (principal); Z85.41 Personal history of malignant neoplasm of cervix uteri; Z91.89 Other specified personal risk factors, not elsewhere classified; Z98.82 Breast implant status | CPT/HCPCS: 77063; 77067 ==

== ENCOUNTER 2025-07-26 14:46 | Outpatient (CLI) | payer MEDICARE, BC, OTHER | END 2025-07-26 14:47 | disposition home or self-care (01) | LOC: BICMAMMO 14:46 | PROVIDERS: ATTEND Internal Medicine | DX: Z12.31 Encounter for screening mammogram for malignant neoplasm of breast (principal); Z80.3 Family history of malignant neoplasm of breast; Z85.41 Personal history of malignant neoplasm of cervix uteri; Z98.82 Breast implant status; Z91.89 Other specified personal risk factors, not elsewhere classified | CPT/HCPCS: 77063; 77067 ==